=== PATIENT | female | born 1960 | race Caucasian/White ===

== ENCOUNTER 2024-09-09 10:43 | Inpatient (IN) | payer MEDICARE ==
--- NOTE | 2024-09-09 11:19 | ED ---
Fever HPI - General Chief Complaint: Fever Stated Complaint: Allergic reaction Time Seen by Provider: 09/09/24 11:02 Source: patient, RN notes reviewed Mode of arrival: EMS Limitations: no limitations - History of Present Illness Initial Comments: 64-year-old female presents emergency department via EMS with family with chief complaint of possible drug reaction. Patient further had chemotherapy in which patient has been receiving the similar chemotherapy for triple negative breast cancer at [facility]. Patient probably had a reaction yesterday receive epinephrine and Solu-Medrol Benadryl was better finished infusion at a slower rate and was discharge patient felt well leaving the hospital but developed some chills late last night woke up this morning felt chilled achy and felt that she may be having a reaction. She has had no URI symptoms denies any sick contacts denies urinary symptoms she has had no recent infections otherwise. Patient was given Benadryl by EMS. Patient was noted to have a temp of 105.2. - Related Data Allergies Allergy/AdvReac Type Severity Reaction Status Date / Time No Known Allergies Allergy Verified 09/09/24 11:03 Review of Systems ROS Statement: Those systems with pertinent positive or pertinent negative responses have been documented in the HPI. ROS Other: All systems not noted in ROS Statement are negative. Past Medical History Past Medical History: Cancer Additional Past Medical History / Comment(s): breast ca History of Any Multi-Drug Resistant Organisms: None Reported Past Surgical History: Section Past Psychological History: No Psychological Hx Reported Smoking Status: Never smoker Past Alcohol Use History: None Reported Past Drug Use History: None Reported General Exam Limitations: no limitations General appearance: alert, in no apparent distress Head exam: Present: atraumatic, normocephalic, normal inspection Eye exam: Present: normal appearance, PERRL, EOMI. Absent: scleral icterus, conjunctival injection, periorbital swelling ENT exam: Present: normal exam, mucous membranes moist Neck exam: Present: normal inspection, full ROM. Absent: tenderness, meningismus, lymphadenopathy Respiratory exam: Present: normal lung sounds bilaterally. Absent: respiratory distress, wheezes, rales, rhonchi, stridor Cardiovascular Exam: Present: regular rate, normal rhythm, normal heart sounds. Absent: systolic murmur, diastolic murmur, rubs, gallop, clicks GI/Abdominal exam: Present: soft, normal bowel sounds. Absent: distended, tenderness, guarding, rebound, rigid Neurological exam: Present: alert, oriented X3 Skin exam: Present: warm, dry, intact, normal color. Absent: rash Course Vital Signs 09/09/24 09/09/24 09/09/24 10:50 11:00 11:30 Temperature 105.2 F H Pulse Rate 95 95 113 H Respiratory 20 20 19 Rate Blood Pressure 119/55 124/57 112/90 O2 Sat by Pulse 97 97 96 Oximetry 09/09/24 09/09/24 09/09/24 12:00 12:05 13:00 Temperature 103.0 F H 99.7 F H Pulse Rate 99 98 91 Respiratory 18 18 17 Rate Blood Pressure 73/34 86/56 75/45 O2 Sat by Pulse 97 97 95 Oximetry 09/09/24 09/09/24 09/09/24 14:00 14:30 15:00 Temperature Pulse Rate 81 84 82 Respiratory 18 18 19 Rate Blood Pressure 90/44 95/45 93/47 O2 Sat by Pulse 95 97 97 Oximetry 09/09/24 16:00 Temperature 98.3 F Pulse Rate 72 Respiratory 19 Rate Blood Pressure 83/55 O2 Sat by Pulse 98 Oximetry Medical Decision Making - Medical Decision Making Was pt. sent in by a medical professional or institution (, PA, EXTRUDER OPERATOR HORIZONTAL, urgent care, hospital, or alf...) When possible be specific @ -No Did you speak to anyone other than the patient for history (EMS, parent, family, police, friend...)? What history was obtained from this source @ -No Did you review nursing and triage notes (agree or disagree)? Why? @ -I reviewed and agree with nursing and triage notes Were old charts reviewed (outside hosp., previous admission, EMS record, old EKG, old radiological studies, urgent care reports/EKG's, alf records)? Report findings @ -No old charts were reviewed Differential Diagnosis (chest pain, altered mental status, abdominal pain women, abdominal pain men, vaginal bleeding, weakness, fever, dyspnea, syncope, headache, dizziness, GI bleed, back pain, seizure, CVA, palpatations, mental health, musculoskeletal)? @ -Differential Fever: Pneumonia, viral URI, endocarditis, myocarditis, pericarditis, otitis, sinusitis, peritonsillar Abscess, retropharyngeal Abscess, epiglottitis, peritonitis, appendicitis, Parris cystitis, diverticulitis, hepatitis, colitis, UTI, PID, TOA, pyelonephritis, prostatitis, epididymitis, meningitis, encephalitis, pulmonary embolism, CVA, thyroid storm, pancreatitis, adrenal crisis, cavernous sinus thrombosis, this is not meant to be an all-inclusive list. EKG interpreted by me (3pts min.). @ -None X-rays interpreted by me (1pt min.). @ -X-ray shows no definite infiltrate CT interpreted by me (1pt min.). @ -None done U/S interpreted by me (1pt. min.). @ -Ultrasound liver showing no biliary duct dilation, possible hepatic lesion no other acute process What testing was considered but not performed or refused? (CT, X-rays, U/S, labs)? Why? @ -None What meds were considered but not given or refused? Why? @ -None Did you discuss the management of the patient with other professionals (professionals i.e. , PA, EXTRUDER OPERATOR HORIZONTAL, lab, RT, psych nurse, administrator social welfare, swatch maker, teacher, radio officer, gearcase assembler)? Give summary @ -[Sound physician for admission Was smoking cessation discussed for >3mins.? @ -No Was critical care preformed (if so, how long)? @ -No Were there social determinants of health that impacted care today? How? (H omelessness, low income, unemployed, alcoholism, drug addiction, transportation, low edu. Level, literacy, decrease access to med. care, skilled nursing, rehab)? @ -No Was there de-escalation of care discussed even if they declined (Discuss DNR or withdrawal of care, Hospice)? DNR status @ -No What co-morbidities impacted this encounter? (DM, HTN, Smoking, COPD, CAD, Cancer, CVA, ARF, Chemo, Hep., AIDS, mental health diagnosis, sleep apnea, morbid obesity)? @ -Brest cancer Was patient admitted / discharged? Hospital course, mention meds given and route, prescriptions, significant lab abnormalities, going to OR and other pertinent info. @ -Admitted patient presents for possible regression, fever. Patient noted to have 105 temp. Patient was given acetaminophen ibuprofen. Patient started fluid boluses, maintenance fluids, will antibiotic therapy for concerns for bacteremia. Blood culture was drawn from periphery and 1 ordered from port. I did attempt to contact patient's oncologist. Patient will have repeat laboratory studies, Undiagnosed new problem with uncertain prognosis? @ -[Yes Drug Therapy requiring intensive monitoring for toxicity (Heparin, Nitro, Insulin, Cardizem)? @ -No Were any procedures done? @ -No Diagnosis/symptom? @ -Fever, breast cancer, chemotherapy reaction Acute, or Chronic, or Acute on Chronic? @ -Acute Uncomplicated (without systemic symptoms) or Complicated (systemic symptoms)? @ -Complicated Side effects of treatment? @ -No Exacerbation, Progression, or Severe Exacerbation? @ -No Poses a threat to life or bodily function? How? (Chest pain, USA, OR, pneumonia, PE, COPD, DKA, ARF, appy, cholecystitis, CVA, Diverticulitis, Homicidal, Suicidal, threat to staff... and all critical care pts) @ -Yes possible endorgan failure - Lab Data Result diagrams: 09/09/24 11:33 09/09/24 11:33 Lab Results 09/09/24 09/09/24 09/09/24 Range/Units 11:33 11:33 11:33 WBC 5.7 (3.8-10.6) k/uL RBC 4.17 (3.80-5.40) m/uL Hgb 12.3 (11.4-16.0) gm/dL Hct 36.6 (34.0-46.0) % MCV 87.7 (80.0-100.0) fL MCH 29.6 (25.0-35.0) pg MCHC 33.7 (31.0-37.0) g/dL RDW 13.4 (11.5-15.5) % Plt Count 99 L (150-450) k/uL MPV 8.0 Neutrophils % 93 % Lymphocytes % 4 % Monocytes % 2 % Eosinophils % 0 % Basophils % 0 % Neutrophils # 5.3 (1.3-7.7) k/uL Lymphocytes # 0.2 L (1.0-4.8) k/uL Monocytes # 0.1 (0-1.0) k/uL Eosinophils # 0.0 (0-0.7) k/uL Basophils # 0.0 (0-0.2) k/uL Manual Slide Review Performed PT 14.3 H (10.0-12.5) sec INR 1.4 H (<1.2) APTT 28.2 (22.0-30.0) sec Sodium (137-145) mmol/L Potassium (3.5-5.1) mmol/L Chloride (98-107) mmol/L Carbon Dioxide (22-30) mmol/L Anion Gap mmol/L BUN (7-17) mg/dL Creatinine (0.52-1.04) mg/dL Est GFR (CKD-EPI)AfAm (>60 ml/min/1.73 sqM) Est GFR (CKD-EPI)NonAf (>60 ml/min/1.73 sqM) Glucose (74-99) mg/dL Lactic Ac Sepsis Rflx Plasma Lactic Acid Agustin (0.7-2.0) mmol/L Calcium (8.4-10.2) mg/dL Total Bilirubin (0.2-1.3) mg/dL AST (14-36) U/L ALT (4-34) U/L Alkaline Phosphatase (38-126) U/L Total Protein (6.3-8.2) g/dL Albumin (3.5-5.0) g/dL Urine Color Yellow Urine Appearance Cloudy H (Clear) Urine pH 5.5 (5.0-8.0) Ur Specific [place] 1.020 (1.001-1.035) Urine Protein 2+ H (Negative) Urine Glucose (UA) Negative (Negative) Urine Ketones Negative (Negative) Urine Blood Moderate H (Negative) Urine Nitrite Negative (Negative) Urine Bilirubin Negative (Negative) Urine Urobilinogen <2.0 (<2.0) mg/dL Ur Leukocyte Esterase Trace H (Negative) Urine RBC 2 (0-5) /hpf Urine WBC 9 H (0-5) /hpf Ur Squamous Epith Cells 2 (0-4) /hpf Urine Bacteria Occasional H (None) /hpf Urine Mucus Rare H (None) /hpf Influenza Type A (PCR) (Not Detectd) Influenza Type B (PCR) (Not Detectd) RSV (PCR) (Not Detectd) SARS-CoV-2 (PCR) (Not Detectd) 09/09/24 09/09/24 09/09/24 Range/Units 11:33 11:33 11:33 WBC (3.8-10.6) k/uL RBC (3.80-5.40) m/uL Hgb (11.4-16.0) gm/dL Hct (34.0-46.0) % MCV (80.0-100.0) fL MCH (25.0-35.0) pg MCHC (31.0-37.0) g/dL RDW (11.5-15.5) % Plt Count (150-450) k/uL MPV Neutrophils % % Lymphocytes % % Monocytes % % Eosinophils % % Basophils % % Neutrophils # (1.3-7.7) k/uL Lymphocytes # (1.0-4.8) k/uL Monocytes # (0-1.0) k/uL Eosinophils # (0-0.7) k/uL Basophils # (0-0.2) k/uL Manual Slide Review PT (10.0-12.5) sec INR (<1.2) APTT (22.0-30.0) sec Sodium 135 L (137-145) mmol/L Potassium 3.8 (3.5-5.1) mmol/L Chloride 106 (98-107) mmol/L Carbon Dioxide 19 L (22-30) mmol/L Anion Gap 10 mmol/L BUN 21 H (7-17) mg/dL Creatinine 1.07 H (0.52-1.04) mg/dL Est GFR (CKD-EPI)AfAm 63 (>60 ml/min/1.73 sqM) Est GFR (CKD-EPI)NonAf 55 (>60 ml/min/1.73 sqM) Glucose 114 H (74-99) mg/dL Lactic Ac Sepsis Rflx Plasma Lactic Acid Agustin 4.5 H* (0.7-2.0) mmol/L Calcium 7.7 L (8.4-10.2) mg/dL Total Bilirubin 1.1 (0.2-1.3) mg/dL AST 431 H (14-36) U/L ALT 434 H (4-34) U/L Alkaline Phosphatase 98 (38-126) U/L Total Protein 5.5 L (6.3-8.2) g/dL Albumin 3.1 L (3.5-5.0) g/dL Urine Color Urine Appearance (Clear) Urine pH (5.0-8.0) Ur Specific [place] (1.001-1.035) Urine Protein (Negative) Urine Glucose (UA) (Negative) Urine Ketones (Negative) Urine Blood (Negative) Urine Nitrite (Negative) Urine Bilirubin (Negative) Urine Urobilinogen (<2.0) mg/dL Ur Leukocyte Esterase (Negative) Urine RBC (0-5) /hpf Urine WBC (0-5) /hpf Ur Squamous Epith Cells (0-4) /hpf Urine Bacteria (None) /hpf Urine Mucus (None) /hpf Influenza Type A (PCR) Not Detected (Not Detectd) Influenza Type B (PCR) Not Detected (Not Detectd) RSV (PCR) Not Detected (Not Detectd) SARS-CoV-2 (PCR) Not Detected (Not Detectd) 09/09/24 Range/Units 12:24 WBC (3.8-10.6) k/uL RBC (3.80-5.40) m/uL Hgb (11.4-16.0) gm/dL Hct (34.0-46.0) % MCV (80.0-100.0) fL MCH (25.0-35.0) pg MCHC (31.0-37.0) g/dL RDW (11.5-15.5) % Plt Count (150-450) k/uL MPV Neutrophils % % Lymphocytes % % Monocytes % % Eosinophils % % Basophils % % Neutrophils # (1.3-7.7) k/uL Lymphocytes # (1.0-4.8) k/uL Monocytes # (0-1.0) k/uL Eosinophils # (0-0.7) k/uL Basophils # (0-0.2) k/uL Manual Slide Review PT (10.0-12.5) sec INR (<1.2) APTT (22.0-30.0) sec Sodium (137-145) mmol/L Potassium (3.5-5.1) mmol/L Chloride (98-107) mmol/L Carbon Dioxide (22-30) mmol/L Anion Gap mmol/L BUN (7-17) mg/dL Creatinine (0.52-1.04) mg/dL Est GFR (CKD-EPI)AfAm (>60 ml/min/1.73 sqM) Est GFR (CKD-EPI)NonAf (>60 ml/min/1.73 sqM) Glucose (74-99) mg/dL Lactic Ac Sepsis Rflx Y Plasma Lactic Acid Agustin (0.7-2.0) mmol/L Calcium (8.4-10.2) mg/dL Total Bilirubin (0.2-1.3) mg/dL AST (14-36) U/L ALT (4-34) U/L Alkaline Phosphatase (38-126) U/L Total Protein (6.3-8.2) g/dL Albumin (3.5-5.0) g/dL Urine Color Urine Appearance (Clear) Urine pH (5.0-8.0) Ur Specific [place] (1.001-1.035) Urine Protein (Negative) Urine Glucose (UA) (Negative) Urine Ketones (Negative) Urine Blood (Negative) Urine Nitrite (Negative) Urine Bilirubin (Negative) Urine Urobilinogen (<2.0) mg/dL Ur Leukocyte Esterase (Negative) Urine RBC (0-5) /hpf Urine WBC (0-5) /hpf Ur Squamous Epith Cells (0-4) /hpf Urine Bacteria (None) /hpf Urine Mucus (None) /hpf Influenza Type A (PCR) (Not Detectd) Influenza Type B (PCR) (Not Detectd) RSV (PCR) (Not Detectd) SARS-CoV-2 (PCR) (Not Detectd) Disposition Clinical Impression: Chemotherapy adverse reaction, Fever Disposition: ADMITTED IP TO THIS HOSP Condition: Poor Referrals: Carlyle Cao DO [Primary Care Provider] - 1-2 days Time of Disposition: 15:43
[2024-09-09] MEDS: ACETAMINOPHEN IV (For NPO) 1,000 MG in EMPTY BAG 1 BAG IVPB STA (11:30)
[2024-09-09] MEDS: IBUPROFEN 600 MG TAB PO STA (11:34)
--- NOTE | 2024-09-09 12:05 | XR ---
EXAMINATION TYPE: XR chest 2V DATE OF EXAM: 09/09/2024 11:40 AM COMPARISON: None CLINICAL INDICATION: Female, 64 years old with history of Fever, , TECHNIQUE: AP and lateral views FINDINGS: The heart is borderline enlarged. Mild diffuse interstitial density. No vargas consolidation. Right an terior chest wall injection port with catheter tip at the lower SVC level. No pleural effusion. IMPRESSION: Borderline cardiomegaly and interstitial prominence. Consider mild CHF with pulmonary vascular conges tion versus bronchitis or atypical pneumonias. [facility], , 09/09/2024 12:03 PM
[2024-09-09 12:11] LABS: Basophils % (A) 0 %; Eosinophils % (A) 0 %; HCT 36.6 % (34.0-46.0); HGB 12.3 gm/dL (11.4-16.0); Lymphocytes # (A) 0.2 k/uL (1.0-4.8); Lymphocytes % (A) 4 %; MCH 29.6 pg (25.0-35.0); MCHC 33.7 g/dL (31.0-37.0); MCV 87.7 fL (80.0-100.0); Monocytes # (A) 0.1 k/uL (0-1.0); Monocytes % (A) 2 %; Neutrophils # (A) 5.3 k/uL (1.3-7.7); Neutrophils % (A) 93 %; RBC 4.17 m/uL (3.80-5.40); RDW 13.4 % (11.5-15.5); WBC 5.7 k/uL (3.8-10.6)
[2024-09-09 12:13] LABS: ALT 434 U/L (4-34); AST 431 U/L (14-36); African American GFR (CKD) 63 (>60 ml/min/1.73 sqM); Albumin 3.1 g/dL (3.5-5.0); Alkaline Phosphatase 98 U/L (38-126); Anion Gap 10 mmol/L; Blood Urea Nitrogen 21 mg/dL (7-17); Calcium 7.7 mg/dL (8.4-10.2); Carbon Dioxide 19 mmol/L (22-30); Chloride 106 mmol/L (98-107); Glucose 114 mg/dL (74-99); Non-African American GFR(CKD) 55 (>60 ml/min/1.73 sqM); Potassium 3.8 mmol/L (3.5-5.1); Sodium 135 mmol/L (137-145); Total Bilirubin 1.1 mg/dL (0.2-1.3); Total Protein 5.5 g/dL (6.3-8.2)
[2024-09-09 12:14] LABS: INR 1.4 (<1.2); Partial Thromboplastin Time 28.2 sec (22.0-30.0); Prothrombin Time 14.3 sec (10.0-12.5)
[2024-09-09] MEDS: SODIUM CHLORIDE 0.9% 500 ML 500 ML IV ONE ×2 (12:20→13:38)
[2024-09-09] MEDS: SODIUM CHLORIDE 0.9% 1,000 ML IV ONE ×2 (12:20→17:06)
[2024-09-09 12:27] LABS: Platelet Count 99 k/uL (150-450)
--- NOTE | 2024-09-09 14:35 | US ---
EXAMINATION TYPE: US liver DATE OF EXAM: 09/09/2024 COMPARISON: NONE CLINICAL INDICATION: Female, 64 years old with history of Transaminitis; Allergic reaction to breast cancer chemotherapy treatment TECHNIQUE: Grayscale and color Doppler imaging of the right upper quadrant was performed. FINDINGS: EXAM MEASUREMENTS: Liver Length: 16.3 cm Gallbladder Wall: 0.2 cm CBD: 0.5 cm Right Kidney: 10.7 x 4.2 x 4.9 cm NUTRITIONISTS NOTES: Patient experience extreme nausea when tech scanned over pancreas Pancreas: Suboptimal visualization of the pancreatic tail due to shadowing from bowel gas. Visualize d portions show no gross abnormality. Liver: Slightly hypoechoic appearance. No focal lesions. Gallbladder: wnl Evidence for sonographic Anguiano's sign: No CBD: Upper limits of normal. Right Kidney: wnl IMPRESSION: 1. Slightly hypoechoic appearance to the liver may be on a technical basis but may also be seen with hepatitis. Clinically correlate. 2. No gallstones or biliary ductal dilatation. [facility], , 09/09/2024 2:33 PM
[2024-09-09 15:13] LABS: Appearance,Urine Cloudy (Clear); Bacteria,Urine Occasional /hpf; Bilirubin,Urine Negative (Negative); Blood,Urine Moderate (Negative); Color,Urine Yellow; Glucose,Urine (UA) Negative (Negative); Ketones,Urine Negative (Negative); Leukocyte Esterase,Urine Trace (Negative); Mucus,Urine Rare /hpf; Nitrite,Urine Negative (Negative); PH, Urine 5.5 (5.0-8.0); Protein,Urine 2+ (Negative); RBC,Urine 2 /hpf (0-5); Squamous Epithelial Cell,Urine 2 /hpf (0-4); Urobilinogen,Urine <2.0 mg/dL (<2.0); WBC,Urine 9 /hpf (0-5)
[2024-09-09] MEDS ORDERED: VANCOMYCIN IV PER PHARMACY 1 EACH MISC MISCELLANE PRN (15:41)
[2024-09-09] MEDS ORDERED: NALOXONE 0.4 MG/ML 1 ML VIAL IV PRN (16:13)
[2024-09-09] MEDS ORDERED: IBUPROFEN 400 MG TAB PO PRN (16:13)
[2024-09-09] MEDS: LIDOCAINE-PRILOCAINE 2.5-2.5% CREAM 5 GM TUBE TOPICAL STA (16:53)
[2024-09-09] MEDS: methylPREDNISolone SOD SUCCI 125 MG/2 ML VIAL IV STA (17:02)
--- NOTE | 2024-09-09 17:02 | P.HPIM ---
History of Present Illness H&P Date: 09/09/24 History of Presenting Illness: Patient is a very pleasant 64-year-old female with a past medical history of hypertension and breast cancer currently undergoing chemotherapy. She reports receiving her first dose of second round of chemotherapy yesterday for treatment of her triple negative breast cancer at [facility]. Patient reports that she had a reaction to her chemotherapy yesterday and received a dose of epinephrine, Benadryl and Solu-Medrol and was discharged back home. Patient reports she woke up feeling overall ill with chills and generalized achiness and mild epigastric pain. She noted herself to be febrile so she called her oncologist who directed her to go to the nearest emergency department for evaluation. Patient denies having any known ill contacts or any other complaints at this time. She denies having headache, lightheadedness, dizziness, chest pain, palpitations, shortness of breath, cough or congestion, nausea, vomiting, or experiencing any numbness/tingling/weakness/swelling in her extremities. Patient does report mild epigastric discomfort and decreased appetite. Upon arrival to our facility, patient underwent evaluation in the emergency department. Vital signs upon arrival show blood pressure 119/55, heart rate 95, respiratory rate 20, temp 105.2 F, and SpO2 of 97% on room air. Chest x-ray was completed showing borderline cardiomegaly and interstitial prominence with pulmonary vascular congestion versus bronchitis or atypical pneumonia. Labs completed and reviewed. CBC unremarkable with exception of thrombocytopenia with platelet count of 99. Coagulation profile showing elevated PT of 14.3 and INR of 1.4. BMP showing sodium 135, potassium 3.8, chloride 106, bicarb 19, and anion gap of 10. Renal function slightly elevated with BUN of 21, creatinine 1.07, GFR 55. Blood glucose 114. Lactic acid 4.5. Liver profile showing elevated AST of 431 and ALT of 434. Urinalysis negative for infection. Influenza A, influenza B, RSV, and COVID PCR negative. Liver ultrasound showing slightly hypoechoic appearance of the liver may be on a technical basis but also seen with hepatitis, no gallstones or biliary ductal dilation. blood cultures were obtained both peripherally and from patient's Chemo-Port that was placed approximately 6 weeks ago. Patient was started on broad-spectrum antibiotics and admitted under our services with consultation to infectious disease and oncology. Review of systems: Pertinent positives and negatives as discussed in HPI, a complete review of systems was performed and all other systems are negative. Physical exam: Vital signs reviewed and stable. General: Nontoxic, no distress and appears stated age. Derm: Skin warm and dry, normal coloration for ethnicity. Head: Atraumatic, normocephalic and symmetric. Eyes: EOM's intact, no lid lag, and anicteric sclera Mouth: no lip lesions, mucus membranes moist Cardiovascular: regular rate and rhythm with normal S1S2, no murmur, positive posterior tibial pulses bilaterally, and cap refill < 2 seconds. Lungs: Respirations even, regular, and unlabored on room air. Lungs CTA bilaterally, no rhonchi, no rales, no wheezing, and no accessory muscle usage. Abdominal: soft, tenderness upon palpation to epigastric region, no guarding, no appreciable organomegaly Ext: ROM intact. No gross muscle atrophy, no edema, no contractures Neuro: Speech clear, face symmetrical and CN II-XII grossly intact with no noted focal neuro deficits Psych: Alert and oriented to person, place, time, and situation. Appropriate and pleasant affect. Assessment and Plan of Care: Sepsis on arrival Pyrexia while undergoing chemotherapy Lactic acidosis Hyperbilirubinemia Breast cancer undergoing chemotherapy -Order placed for stat CT abdomen and pelvis. CT revealing mild uncomplicated sigmoid diverticulitis, hepatic steatosis, and mild soft tissue edema. -Vancomycin discontinued and patient started on Zosyn 3.375 g every 8 hours. -Continue with aggressive IV fluid hydration for hypotension with blood pressure 90s systolic. -Repeat lactic acid monitor for resolution of lactic acidosis. -Discussed case with window and siding craftsman, if blood pressures do not improve or lactic acid does not improve patient may require transfer to ICU. -Follow-up on blood culture results. -Continue symptomatic care and pain management. Data and imaging reviewed: -As stated above in HPI The patient is admitted with an anticipated greater than 2 midnight stay for evaluation of severe sepsis CODE STATUS: Full code DVT prophylaxis: Lovenox Anticipated discharge date: Pending clinical course Anticipated discharge place: Home Patient was seen independently by Nurse Practitioner. This document was prepared using garbs dictation software. Please allow for errors in carbider while rare they do occur. Javad Mccray NP rendered care for this patient independently, reviewed the findings and plan as documented in the note above and agree with plan. I did not physically speak with or examine the patient on this date. Past Medical History Past Medical History: Cancer Additional Past Medical History / Comment(s): breast ca History of Any Multi-Drug Resistant Organisms: None Reported Past Surgical History: Section Past Psychological History: No Psychological Hx Reported Smoking Status: Never smoker Past Alcohol Use History: None Reported Past Drug Use History: None Reported Medications and Allergies Home Medications Medication Instructions Recorded Confirmed Type Cetirizine HCl [Zyrtec] 10 mg PO DAILY 09/09/24 09/09/24 History Lidocaine-Prilocaine Cream [Emla 1 applic TOPICAL DAILY PRN 09/09/24 09/09/24 History Cream 2.5%/2.5%] Losartan [Cozaar] 50 mg PO DAILY 09/09/24 09/09/24 History OLANZapine [ZyPREXA] 5 mg PO DIRECTED PRN 09/09/24 09/09/24 History Ondansetron Odt [Zofran Odt] 8 mg PO Q8HR PRN 09/09/24 09/09/24 History Prochlorperazine [Compazine] 10 mg PO Q6H PRN 09/09/24 09/09/24 History dexAMETHasone [Decadron] 8 mg PO DIRECTED 09/09/24 09/09/24 History Allergies Allergy/AdvReac Type Severity Reaction Status Date / Time No Known Allergies Allergy Verified 09/09/24 16:16 Physical Exam Vitals: Vital Signs Temp Pulse Resp BP Pulse Ox 09/09/24 16:00 98.3 F 72 19 83/55 98 09/09/24 15:00 82 19 93/47 97 09/09/24 14:30 84 18 95/45 97 09/09/24 14:00 81 18 90/44 95 09/09/24 13:00 99.7 F H 91 17 75/45 95 09/09/24 12:05 103.0 F H 98 18 86/56 97 09/09/24 12:00 99 18 73/34 97 09/09/24 11:30 113 H 19 112/90 96 09/09/24 11:00 95 20 124/57 97 09/09/24 10:50 105.2 F H 95 20 119/55 97 Intake and Output 09/09/24 09/09/24 09/09/24 06:59 14:59 22:59 Other: Weight 71.214 kg Results CBC & Chem 7: 09/09/24 11:33 09/09/24 11:33 Labs: Abnormal Lab Results - Last 24 Hours (Table) 09/09/24 09/09/24 09/09/24 Range/Units 11:33 11:33 11:33 Plt Count 99 L (150-450) k/uL Lymphocytes # 0.2 L (1.0-4.8) k/uL PT 14.3 H (10.0-12.5) sec INR 1.4 H (<1.2) Sodium (137-145) mmol/L Carbon Dioxide (22-30) mmol/L BUN (7-17) mg/dL Creatinine (0.52-1.04) mg/dL Glucose (74-99) mg/dL Plasma Lactic Acid Agustin (0.7-2.0) mmol/L Calcium (8.4-10.2) mg/dL AST (14-36) U/L ALT (4-34) U/L Total Protein (6.3-8.2) g/dL Albumin (3.5-5.0) g/dL Urine Appearance Cloudy H (Clear) Urine Protein 2+ H (Negative) Urine Blood Moderate H (Negative) Ur Leukocyte Esterase Trace H (Negative) Urine WBC 9 H (0-5) /hpf Urine Bacteria Occasional H (None) /hpf Urine Mucus Rare H (None) /hpf 09/09/24 09/09/24 Range/Units 11:33 11:33 Plt Count (150-450) k/uL Lymphocytes # (1.0-4.8) k/uL PT (10.0-12.5) sec INR (<1.2) Sodium 135 L (137-145) mmol/L Carbon Dioxide 19 L (22-30) mmol/L BUN 21 H (7-17) mg/dL Creatinine 1.07 H (0.52-1.04) mg/dL Glucose 114 H (74-99) mg/dL Plasma Lactic Acid Agustin 4.5 H* (0.7-2.0) mmol/L Calcium 7.7 L (8.4-10.2) mg/dL AST 431 H (14-36) U/L ALT 434 H (4-34) U/L Total Protein 5.5 L (6.3-8.2) g/dL Albumin 3.1 L (3.5-5.0) g/dL Urine Appearance (Clear) Urine Protein (Negative) Urine Blood (Negative) Ur Leukocyte Esterase (Negative) Urine WBC (0-5) /hpf Urine Bacteria (None) /hpf Urine Mucus (None) /hpf
[2024-09-09] MEDS: SODIUM CHLORIDE 0.9% 1,000 ML IV SCH (17:04)
[2024-09-09] MEDS: CEFEPIME 2 GM in SODIUM CHLORIDE 0.9% 100 ML IVPB STA (17:39)
[2024-09-09] MEDS: ONDANSETRON 4 MG/2 ML VIAL IVP PRN (17:49)
[2024-09-09] MEDS: VANCOMYCIN 1,250 MG in SODIUM CHLORIDE 0.9% 250 ML IVPB STA (18:14)
--- NOTE | 2024-09-09 18:39 | CT ---
INDICATION: Patient age:Female; 64 years old; Reason for study: epigastric tenderness on palpation, high fever; PHH. COMPARISON: Abdominal ultrasound from same day. TECHNIQUE: Standard CT of the abdomen and pelvis following the administration of 80 cc of Isovue 30 0 IV contrast material. Coronal and sagittal reformats were performed. One or more CT dose reduction strategies were utilized during this examination. Total DLP administered was 911.4 mGycm. FINDINGS: LOWER CHEST: Posterior dependent subsegmental atelectasis is noted. ABDOMEN LIVER: Diffusely hypoattenuating, suggestive hepatic steatosis. GALLBLADDER AND BILE DUCTS: Unremarkable. PANCREAS: Unremarkable. SPLEEN: Unremarkable. ADRENAL GLANDS: Unremarkable. KIDNEYS AND URETERS: No evidence of hydronephrosis or renal calculus. The ureters are unremarkable. PELVIS URINARY BLADDER: Incompletely distended but grossly unremarkable. Urachus incidentally noted. REPRODUCTIVE: Unremarkable. ABDOMEN & PELVIS STOMACH AND BOWEL: Small hiatal hernia. Small bowel is of normal caliber. Sigmoid diverticula are see n. The sigmoid colon demonstrates mild wall thickening with peridiverticular fat stranding. There is no evidence for pneumatosis. No pericolonic fluid collections. No obvious fistulization. No evidence of bowel obstruction. PERITONEUM: No evidence of pneumoperitoneum or free fluid. VASCULATURE: No aneurysmal changes. MUSCULOSKELETAL: No acute osseous abnormalities LYMPH NODES: Unremarkable. SOFT TISSUE/ABDOMINAL WALL: Mild soft tissue edema. IMPRESSION: 1. Mild uncomplicated sigmoid diverticulitis. 2. Findings suggestive of hepatic steatosis. Correlate with clinical evaluation. 3. Mild soft tissue edema. [facility], , 09/09/2024 6:37 PM
[2024-09-09] MEDS ORDERED: PROCHLORPERAZINE INJ 10 MG/2 ML VIAL IVP PRN (19:05)
[2024-09-09] MEDS: dexAMETHasone 4 MG TAB PO SCH (19:49)
[2024-09-09] MEDS: PIPERACILLIN-TAZOBACTAM 3.375 GM in SODIUM CHLORIDE 0.9% 100 ML IVPB SCH (20:29)
[2024-09-10] MEDS: BENZOCAINE/MENTHOL LOZENG 1 EACH LOZENGE MUCOUS MEM PRN (05:14)
[2024-09-10] MEDS: ENOXAPARIN 40 MG/0.4 ML SYRINGE SQ SCH (09:51)
[2024-09-10] MEDS: LORATADINE 10 MG TAB PO SCH (09:52)
[2024-09-10 11:34] LABS: Basophils % (A) 0 %; Eosinophils % (A) 0 %; HCT 34.2 % (34.0-46.0); HGB 11.1 gm/dL (11.4-16.0); Lymphocytes # (A) 0.7 k/uL (1.0-4.8); Lymphocytes % (A) 10 %; MCH 29.1 pg (25.0-35.0); MCHC 32.4 g/dL (31.0-37.0); MCV 89.9 fL (80.0-100.0); Mean Platelet Volume 10.2; Monocytes # (A) 0.1 k/uL (0-1.0); Monocytes % (A) 2 %; Neutrophils # (A) 5.7 k/uL (1.3-7.7); Neutrophils % (A) 87 %; RDW 13.9 % (11.5-15.5); WBC 6.5 k/uL (3.8-10.6)
[2024-09-10 11:37] LABS: Platelet Count 69 k/uL (150-450)
[2024-09-10 12:36] LABS: ALT 343 U/L (4-34); AST 207 U/L (14-36); African American GFR (CKD) >90 (>60 ml/min/1.73 sqM); Albumin 2.9 g/dL (3.5-5.0); Albumin/Globulin Ratio 1.2; Alkaline Phosphatase 70 U/L (38-126); Anion Gap 5 mmol/L; Blood Urea Nitrogen 20 mg/dL (7-17); Calcium 6.8 mg/dL (8.4-10.2); Carbon Dioxide 15 mmol/L (22-30); Chloride 118 mmol/L (98-107); Globulin 2.5 g/dL; Glucose 164 mg/dL (74-99); Non-African American GFR(CKD) 89 (>60 ml/min/1.73 sqM); Potassium 3.9 mmol/L (3.5-5.1); Sodium 138 mmol/L (137-145); Total Bilirubin 0.8 mg/dL (0.2-1.3); Total Protein 5.4 g/dL (6.3-8.2)
--- NOTE | 2024-09-10 12:46 | P.CONS ---
History of Present Illness - Reason for Consult Consult date: 09/10/24 Fever, chemoimmunotherapy for breast cancer - History of Present Illness The patient is a 64-year-old white female, with a recent diagnosis of triple negative left-sided breast cancer, as well as a suspicious area on the right. The patient's primary oncologist is Dr. Turcios, at [facility]. The patient is on neoadjuvant chemoimmunotherapy, with Keytruda/Taxol/carboplatin and is status post 2 cycles. The patient tolerated her first cycle well. With cycle 2 that was being administered yesterday, she developed a reaction during Taxol infusion, with upper chest pain and tightness, back pain, and shortness of breath. Her symptoms resolved with stopping the infusion, and epinephrine. After a delay of about 45 minutes, during which she also received IV Solu-Medrol, Taxol was resumed at a slow rate and she was able to complete it without any problems. She was feeling reasonably well when she went home Patient states that she woke up with complaints of feeling feverish, generalized aching, chills, and upper abdominal pain. She contacted her primary oncologist who advised her to come to the ER. In the ER her temperature was 105.2. She also reported episodes of diarrhea, mucoid/watery, small in amount. She has had at least 2 episodes today. She has some mild sinus congestion, but denied any other symptoms concerning for infection Her CT of the abdomen and pelvis showed evidence of uncomplicated sigmoid diverticulitis. The patient has had prior episodes of the same. Ultrasound of the liver showed a hypoechoic appearance of the parenchyma, which can be seen with fatty change, but no focal lesions. The patient does have a port Review of Systems Constitutional: Reports chills, Reports fever Eyes: denies blurred vision, denies pain Ears: deny: decreased hearing, ear discharge, earache, tinnitus Ears, nose, mouth and throat: Reports sinus pressure Breasts: bilateral: as per HPI Cardiovascular: Reports as per HPI Respiratory: Denies cough Gastrointestinal: Reports abdominal pain, Reports diarrhea Genitourinary: Denies dysuria, Denies hematuria Menstruation: Reports postmenopausal Musculoskeletal: Reports myalgias Integumentary: Denies pruritus, Denies rash Neurological: Reports weakness Psychiatric: Denies anxiety, Denies depression Endocrine: Denies fatigue, Denies weight change Hematologic/Lymphatic: Reports as per HPI Allergic/Immunologic: Reports as per HPI Past Medical History Past Medical History: Cancer, GERD/Reflux, Hypertension Additional Past Medical History / Comment(s): breast ca- 04/27 History of Any Multi-Drug Resistant Organisms: None Reported Past Surgical History: Section Past Psychological History: No Psychological Hx Reported Smoking Status: Former smoker Past Alcohol Use History: None Reported Past Drug Use History: None Reported Additional Drug Use History / Comment(s): quit smoking 2017 Medications and Allergies Home Medications Medication Instructions Recorded Confirmed Type Cetirizine HCl [Zyrtec] 10 mg PO DAILY 09/09/24 09/09/24 History Lidocaine-Prilocaine Cream [Emla 1 applic TOPICAL DAILY PRN 09/09/24 09/09/24 History Cream 2.5%/2.5%] Losartan [Cozaar] 50 mg PO DAILY 09/09/24 09/09/24 History OLANZapine [ZyPREXA] 5 mg PO DIRECTED PRN 09/09/24 09/09/24 History Ondansetron Odt [Zofran Odt] 8 mg PO Q8HR PRN 09/09/24 09/09/24 History Prochlorperazine [Compazine] 10 mg PO Q6H PRN 09/09/24 09/09/24 History dexAMETHasone [Decadron] 8 mg PO DIRECTED 09/09/24 09/09/24 History Allergies Allergy/AdvReac Type Severity Reaction Status Date / Time No Known Allergies Allergy Verified 09/09/24 16:16 Physical Exam Vitals: Vital Signs Temp Pulse Pulse Resp BP BP BP 09/10/24 08:03 98.8 F 85 17 131/69 09/10/24 02:10 91/58 93/54 09/10/24 02:00 97.6 F 71 16 74/43 73/44 09/10/24 00:10 97.5 F L 73 16 112/68 09/09/24 22:42 109/68 09/09/24 22:05 94/61 09/09/24 21:12 77 18 89/65 09/09/24 19:46 97.6 F 09/09/24 19:00 75 18 99/52 09/09/24 18:30 77 18 105/56 09/09/24 18:00 75 19 91/50 09/09/24 17:00 74 18 88/51 09/09/24 16:00 98.3 F 72 19 83/55 09/09/24 15:00 82 19 93/47 09/09/24 14:30 84 18 95/45 09/09/24 14:00 81 18 90/44 09/09/24 13:00 99.7 F H 91 17 75/45 Pulse Ox 09/10/24 08:03 100 09/10/24 02:10 09/10/24 02:00 98 09/10/24 00:10 100 09/09/24 22:42 09/09/24 22:05 09/09/24 21:12 99 09/09/24 19:46 09/09/24 19:00 99 09/09/24 18:30 98 09/09/24 18:00 98 09/09/24 17:00 96 09/09/24 16:00 98 09/09/24 15:00 97 09/09/24 14:30 97 09/09/24 14:00 95 09/09/24 13:00 95 Intake and Output 09/09/24 09/10/24 09/10/24 22:59 06:59 14:59 Other: # Voids 3 Weight 71.214 kg - Constitutional General appearance: no acute distress - EENT Eyes: EOMI, PERRLA ENT: hearing grossly normal, normal oropharynx - Neck Neck: no lymphadenopathy Thyroid: bilateral: normal size - Respiratory Respiratory: bilateral: CTA - Cardiovascular Rhythm: regular Heart sounds: normal: S1, S2 - Gastrointestinal General gastrointestinal: normal bowel sounds, soft - Integumentary Integumentary: normal - Neurologic Neurologic: CNII-XII intact - Musculoskeletal Musculoskeletal: strength equal bilaterally - Psychiatric Psychiatric: A&O x's 3, appropriate affect Results CBC & Chem 7: 09/10/24 10:55 09/09/24 11:33 Labs: Abnormal Lab Results - Last 24 Hours (Table) 09/09/24 09/09/24 09/09/24 Range/Units 11:33 11:33 11:33 Hgb (11.4-16.0) gm/dL Plt Count 99 L (150-450) k/uL Lymphocytes # 0.2 L (1.0-4.8) k/uL Procalcitonin 11.70 H (0.02-0.50) ng/mL Urine Appearance Cloudy H (Clear) Urine Protein 2+ H (Negative) Urine Blood Moderate H (Negative) Ur Leukocyte Esterase Trace H (Negative) Urine WBC 9 H (0-5) /hpf Urine Bacteria Occasional H (None) /hpf Urine Mucus Rare H (None) /hpf 09/10/24 Range/Units 10:55 Hgb 11.1 L (11.4-16.0) gm/dL Plt Count 69 L (150-450) k/uL Lymphocytes # 0.7 L (1.0-4.8) k/uL Procalcitonin (0.02-0.50) ng/mL Urine Appearance (Clear) Urine Protein (Negative) Urine Blood (Negative) Ur Leukocyte Esterase (Negative) Urine WBC (0-5) /hpf Urine Bacteria (None) /hpf Urine Mucus (None) /hpf CT scan - abdomen: report reviewed CT scan - pelvis: report reviewed US - abdomen: report reviewed Assessment and Plan (1) Fever Narrative/Plan: The patient developed new onset fever associated symptoms, several hours after completing her chemotherapy infusion. The symptoms are quite different from the reaction that she had during her chemotherapy. Clinically this likely represents a different pathophysiology, compared to the acute drug reaction. -The patient was advised that in this situation the main concern would be to rule out an infection. She has been placed on broad-spectrum antibiotics, and cultures are in process. She is not neutropenic, as would be expected so early during her chemotherapy cycle. Check stools for C. difficile -Other possibilities include diverticulitis as well as a generalized inflammatory response to her treatment regimen, different to the hypersensiti vity reaction that she had previously. -Keep on clear liquids currently Current Visit: Yes Status: Acute Code(s): R50.9 - FEVER, UNSPECIFIED SNOMED Code(s): 295396706 (2) Chemotherapy adverse reaction Narrative/Plan: The patient had a hypersensitivity reaction while receiving Taxol, that appears to be quite characteristic of the typical Taxol hypersensitivity reaction. This had completely resolved and the patient was able to complete the Taxol i nfusion. She was feeling well when she went home. Therefore as stated, her current episode is likely to be due to a different cause. Current Visit: Yes Status: Acute Code(s): T45.1X5A - ADVERSE EFFECT OF ANTINEOPLASTIC AND IMMUNOSUP DRUGS, INIT SNOMED Code(s): 139655976
[2024-09-10 14:04] LABS: Hepatitis A Antibody IgM Nonreactive (Nonreactive); Hepatitis C IgG Antibody Nonreactive (Nonreactive)
[2024-09-10 14:05] LABS: Hepatitis B Core IgM Nonreactive (Nonreactive); Hepatitis B Surface Antigen Nonreactive (Nonreactive)
[2024-09-10] MEDS ORDERED: VANCOMYCIN 1,250 MG in SODIUM CHLORIDE 0.9% 250 ML IVPB SCH (17:00)
[2024-09-10] MEDS: OLANZapine 5 MG TAB PO PRN (21:31)
--- NOTE | 2024-09-10 23:09 | P.CONS ---
History of Present Illness - Reason for Consult Consult date: 09/10/24 Fever, chemo Requesting physician: Carlyle Robertson - Chief Complaint Fever x 2 days - History of Present Illness Patient is a 64-year-old female with a past medical history significant for breast cancer diagnosed April 2024 and has been on chemotherapy also with a history of hypertension reflux patient presenting to the hospital for evaluation of possible drug reaction apparently the patient was having symptoms during infusion of Taxol that has been treated with epinephrine and Solu-Medrol as well as Benadryl patient subsequent developing fever and chills and did have a fever this morning of presentation to the hospital patient denies having any headache or URI symptoms no chest pain or shortness with occasional cough some nausea but no vomiting has been complaining of some lower abdominal discomfort mild to moderate without radiation hide did have a history of constipation no blood or mucus in the stool on presentation to the hospital patient initially did have a temperature of 105 F with a subsequent temperature of 103 F patient was not tachycardic hypotensive or hypoxic and no need for supplemental oxygen she did have a white count of 5.7 BUN/creatinine was mildly elevated lactic acid was elevated as well as elevated liver enzymes urine was not significantly positive influenza RSV COVID testing negative hepatitis panel is negative blood culture obtained currently pending patient did have chest x- ray borderline cardiomegaly and interstitial prominence did have a liver ultrasound no gallstone or biliary duct dilatation abdominal pelvis CT finding suggestive of hepatic steatosis and mild uncomplicated sigmoid diverticulitis patient has been treated with Zosyn infectious disease was consulted for further management of antibiotic therapy Review of Systems Positive point and negatives has been mentioned in the HPI, complete review of systems was performed and all other systems are negative Past Medical History Past Medical History: Cancer, GERD/Reflux, Hypertension Additional Past Medical History / Comment(s): breast ca- 04/27 History of Any Multi-Drug Resistant Organisms: None Reported Past Surgical History: Section Past Psychological History: No Psychological Hx Reported Smoking Status: Former smoker Past Alcohol Use History: None Reported Past Drug Use History: None Reported Additional Drug Use History / Comment(s): quit smoking 2017 Medications and Allergies Home Medications Medication Instructions Recorded Confirmed Type Cetirizine HCl [Zyrtec] 10 mg PO DAILY 09/09/24 09/09/24 History Lidocaine-Prilocaine Cream [Emla 1 applic TOPICAL DAILY PRN 09/09/24 09/09/24 History Cream 2.5%/2.5%] Losartan [Cozaar] 50 mg PO DAILY 09/09/24 09/09/24 History OLANZapine [ZyPREXA] 5 mg PO DIRECTED PRN 09/09/24 09/09/24 History Ondansetron Odt [Zofran Odt] 8 mg PO Q8HR PRN 09/09/24 09/09/24 History Prochlorperazine [Compazine] 10 mg PO Q6H PRN 09/09/24 09/09/24 History dexAMETHasone [Decadron] 8 mg PO DIRECTED 09/09/24 09/09/24 History Allergies Allergy/AdvReac Type Severity Reaction Status Date / Time No Known Allergies Allergy Verified 09/09/24 16:16 Physical Exam Vitals: Vital Signs Temp Pulse Pulse Resp BP BP BP 09/10/24 02:10 91/58 93/54 09/10/24 02:00 97.6 F 71 16 74/43 73/44 09/10/24 00:10 97.5 F L 73 16 112/68 09/09/24 22:42 109/68 09/09/24 22:05 94/61 09/09/24 21:12 77 18 89/65 09/09/24 19:46 97.6 F 09/09/24 19:00 75 18 99/52 09/09/24 18:30 77 18 105/56 09/09/24 18:00 75 19 91/50 09/09/24 17:00 74 18 88/51 09/09/24 16:00 98.3 F 72 19 83/55 09/09/24 15:00 82 19 93/47 09/09/24 14:30 84 18 95/45 09/09/24 14:00 81 18 90/44 09/09/24 13:00 99.7 F H 91 17 75/45 09/09/24 12:05 103.0 F H 98 18 86/56 09/09/24 12:00 99 18 73/34 Pulse Ox 09/10/24 02:10 09/10/24 02:00 98 09/10/24 00:10 100 09/09/24 22:42 09/09/24 22:05 09/09/24 21:12 99 09/09/24 19:46 09/09/24 19:00 99 09/09/24 18:30 98 09/09/24 18:00 98 09/09/24 17:00 96 09/09/24 16:00 98 09/09/24 15:00 97 09/09/24 14:30 97 09/09/24 14:00 95 09/09/24 13:00 95 09/09/24 12:05 97 09/09/24 12:00 97 Intake and Output 09/09/24 09/10/24 09/10/24 22:59 06:59 14:59 Other: # Voids 3 Weight 71.214 kg GENERAL DESCRIPTION: Elderly female lying in bed, no distress. No tachypnea or accessory muscle of respiration use. HEENT: Shows Pallor , no scleral icterus. Oral mucous membrane is dry. No pharyngeal erythema or thrush NECK: Trachea central, no thyromegaly. LUNGS: Unlabored breathing. Clear to auscultation anteriorly. No wheeze or crackle. HEART: S1, S2, regular rate and rhythm. No loud murmur ABDOMEN: Soft, mild tenderness EXTREMITIES: No edema of feet. SKIN: No rash, no masses palpable. NEUROLOGICAL: The patient is awake, alert, oriented x3, mood and affect normal. Results CBC & Chem 7: 09/10/24 10:55 09/10/24 12:02 Labs: Abnormal Lab Results - Last 24 Hours (Table) 09/09/24 09/09/24 09/09/24 Range/Units 11:33 11:33 11:33 Hgb (11.4-16.0) gm/dL Plt Count 99 L (150-450) k/uL Lymphocytes # 0.2 L (1.0-4.8) k/uL PT 14.3 H (10.0-12.5) sec INR 1.4 H (<1.2) Sodium (137-145) mmol/L Carbon Dioxide (22-30) mmol/L BUN (7-17) mg/dL Creatinine (0.52-1.04) mg/dL Glucose (74-99) mg/dL Plasma Lactic Acid Agustin (0.7-2.0) mmol/L Calcium (8.4-10.2) mg/dL AST (14-36) U/L ALT (4-34) U/L Total Protein (6.3-8.2) g/dL Albumin (3.5-5.0) g/dL Procalcitonin (0.02-0.50) ng/mL Urine Appearance Cloudy H (Clear) Urine Protein 2+ H (Negative) Urine Blood Moderate H (Negative) Ur Leukocyte Esterase Trace H (Negative) Urine WBC 9 H (0-5) /hpf Urine Bacteria Occasional H (None) /hpf Urine Mucus Rare H (None) /hpf 09/09/24 09/09/24 09/09/24 Range/Units 11:33 11:33 11:33 Hgb (11.4-16.0) gm/dL Plt Count (150-450) k/uL Lymphocytes # (1.0-4.8) k/uL PT (10.0-12.5) sec INR (<1.2) Sodium 135 L (137-145) mmol/L Carbon Dioxide 19 L (22-30) mmol/L BUN 21 H (7-17) mg/dL Creatinine 1.07 H (0.52-1.04) mg/dL Glucose 114 H (74-99) mg/dL Plasma Lactic Acid Agustin 4.5 H* (0.7-2.0) mmol/L Calcium 7.7 L (8.4-10.2) mg/dL AST 431 H (14-36) U/L ALT 434 H (4-34) U/L Total Protein 5.5 L (6.3-8.2) g/dL Albumin 3.1 L (3.5-5.0) g/dL Procalcitonin 11.70 H (0.02-0.50) ng/mL Urine Appearance (Clear) Urine Protein (Negative) Urine Blood (Negative) Ur Leukocyte Esterase (Negative) Urine WBC (0-5) /hpf Urine Bacteria (None) /hpf Urine Mucus (None) /hpf 09/10/24 Range/Units 10:55 Hgb 11.1 L (11.4-16.0) gm/dL Plt Count 69 L (150-450) k/uL Lymphocytes # 0.7 L (1.0-4.8) k/uL PT (10.0-12.5) sec INR (<1.2) Sodium (137-145) mmol/L Carbon Dioxide (22-30) mmol/L BUN (7-17) mg/dL Creatinine (0.52-1.04) mg/dL Glucose (74-99) mg/dL Plasma Lactic Acid Agustin (0.7-2.0) mmol/L Calcium (8.4-10.2) mg/dL AST (14-36) U/L ALT (4-34) U/L Total Protein (6.3-8.2) g/dL Albumin (3.5-5.0) g/dL Procalcitonin (0.02-0.50) ng/mL Urine Appearance (Clear) Urine Protein (Negative) Urine Blood (Negative) Ur Leukocyte Esterase (Negative) Urine WBC (0-5) /hpf Urine Bacteria (None) /hpf Urine Mucus (None) /hpf Assessment and Plan (1) Acute diverticulitis Current Visit: Yes Status: Acute Code(s): K57.92 - DVTRCLI OF INTEST, PART UNSP, W/O PERF OR ABSCESS W/O BLEED SNOMED Code(s): 940414920 Plan: 1patient presented hospital with fever and this patient apparently seem to have a similar symptom when getting infusion of her chemotherapy with a question of possible drug reaction as the patient did not have any elevated white count on presentation to the hospital and no significant tachycardia was noticed with a fever of 105 F however the patient did have abnormality on the CT with uncomplicated diverticulitis and may have become contributing to some of her symptomatology 2-patient is adequately covered with Zosyn 3.375 g 8-hour to continue along with bowel rest 3-we will check inflammatory markers We will follow on clinical condition and cultures to further adjust medication if needed Thank you for this consultation we will follow the patient along with you Dictation was produced using [employer] dictation software. please excuse any grammatical, word or spelling errors. Time with Patient: Greater than 30
[2024-09-11 00:59] LABS: Glucose,Whole Blood 87 mg/dL (70-110)
[2024-09-11] MEDS: IPRATROPIUM-ALBUTEROL 3 ML NEB INHALATION STA (01:22)
[2024-09-11] MEDS: methylPREDNISolone SOD SUCCI 125 MG/2 ML VIAL IV STA (01:27)
[2024-09-11] MEDS: FUROSEMIDE 10 MG/ML 2 ML VIAL IV STA ×2 (01:32→01:51)
[2024-09-11] MEDS: diphenhydrAMINE 50 MG/ML 1 ML VIAL IVP STA (01:33)
[2024-09-11] MEDS: ACETAMINOPHEN TAB 325 MG TAB PO PRN (01:50)
--- NOTE | 2024-09-11 04:23 | XR ---
EXAM: XR Chest, 1 View CLINICAL HISTORY: ITS.REASON XR Reason: SOB TECHNIQUE: Frontal view of the chest. COMPARISON: No relevant prior studies available. FINDINGS: Lungs: No consolidation or mass. Moderate vascular congestion Pleural space: No acute findings. Heart: cardiomegaly. Bones/joints: No acute findings. IMPRESSION: Moderate vascular congestion
[2024-09-11] MEDS: IPRATROPIUM-ALBUTEROL 3 ML NEB INHALATION PRN (05:37)
[2024-09-11] MEDS: dexAMETHasone 4 MG TAB PO SCH (09:14)
[2024-09-11 10:42] LABS: Basophils # (A) 0.02 X 10*3/uL (0.00-0.10); Basophils % (A) 0.2 %; Eosinophils # (A) 0 X 10*3/uL (0.04-0.35); Eosinophils % (A) 0 %; HCT 31.8 % (37.2-46.3); HGB 10.9 g/dL (12.0-15.0); Immature Platelet Fraction 12.6 % (1.1-6.1); Lymphocytes # (A) 0.89 X 10*3/uL (0.90-5.00); Lymphocytes % (A) 8.4 %; MCHC 34.3 g/dL (32.0-37.0); MCV 84.6 FL (80.0-97.0); Mean Platelet Volume 13.2 FL (9.5-12.2); Monocytes % (A) 0.9 %; NRBC Per 100 WBC 0 X 10*3/uL (0.00-0.01); Neutrophils # (A) 9.51 X 10*3/uL (1.80-7.70); Neutrophils % (A) 89.3 %; Platelet Count 62 X 10*3/uL (140-440); RBC 3.76 X 10*6/uL (4.10-5.20); RDW 14.6 % (11.5-14.5); WBC 10.65 X 10*3/uL (4.50-10.00)
[2024-09-11 10:45] LABS: BUN/Creat Ratio 18.75 Ratio (12.00-20.00); Carbon Dioxide 14.8 mmol/L (21.6-31.8); Chloride 112 mmol/L (96-109); Glucose 161 mg/dL (70-110); Potassium 3.1 mmol/L (3.5-5.5); Sodium 139 mmol/L (135-145)
[2024-09-11 10:46] LABS: ALT 307 U/L (8-44); AST 114 U/L (13-35); Albumin 3.5 g/dL (3.8-4.9); Albumin/Globulin Ratio 1.94 Ratio (1.60-3.17); Alkaline Phosphatase 71 U/L (41-126); Calcium 7.1 mg/dL (8.7-10.3); Globulin 1.8 g/dL (1.6-3.3); Total Bilirubin 0.6 mg/dL (0.3-1.2); Total Protein 5.3 g/dL (6.2-8.2)
[2024-09-11] MEDS: MAG HYDROX/AL HYDROX/SIMETH 30 ML, HYOSCYAMINE ELIXIR 10 ML, LIDOCAINE VISCOUS 2% 10 ML PO ONE (12:35)
[2024-09-11] MEDS: POTASSIUM CHLORIDE ER 20 MEQ TAB.ER PO STA (13:36)
--- NOTE | 2024-09-11 14:06 | P.PN ---
Subjective Progress Note Date: 09/11/24 The patient had some chills and rigors overnight. She reports increased frequency of bowel movements, but these are now formed. She has been tolerating clear liquids well, and feels hungry. Fever pattern is improved. Objective - Vital Signs Vital signs: Vital Signs Temp 97.7 F 09/11/24 07:28 Pulse 89 09/11/24 07:28 Resp 20 09/11/24 07:28 BP 106/54 09/11/24 07:28 Pulse Ox 95 09/11/24 07:28 FiO2 Intake & Output 09/10/24 09/11/24 09/11/24 18:59 06:59 18:59 Intake Total 1140 Balance 1140 Intake: Intake, IV Titration 1140 Amount Piperacillin-Tazobactam 3 100 .375 gm In Sodium Chloride 0.9% 100 ml @ 25 mls/hr IVPB Q8H DARREN Rx#: [id number] Sodium Chloride 0.9% 1, 1040 000 ml @ 130 mls/hr IV . [id number] DARREN Rx#:[id number] Other: # Voids 3 # Bowel Movements 1 - Constitutional General appearance: Present: no acute distress - EENT Eyes: Present: EOMI ENT: Present: hearing grossly normal, normal oropharynx - Respiratory Respiratory: bilateral: CTA - Cardiovascular Rhythm: regular Heart sounds: normal: S1, S2 - Gastrointestinal General gastrointestinal: Present: soft Localized gastrointestinal: tender: RUQ (Mild), LLQ (Mild) - Integumentary Integumentary: Present: normal - Neurologic Neurologic: Present: CNII-XII intact - Musculoskeletal Musculoskeletal: Present: generalized weakness, strength equal bilaterally - Psychiatric Psychiatric: Present: A&O x's 3, appropriate affect - Labs CBC & Chem 7: 09/11/24 03:07 09/11/24 03:07 Labs: Abnormal Lab Results - Last 24 Hours (Table) 09/11/24 09/11/24 Range/Units 03:07 03:07 WBC 10.65 H (4.50-10.00) X 10*3/uL RBC 3.76 L (4.10-5.20) X 10*6/uL Hgb 10.9 L (12.0-15.0) g/dL Hct 31.8 L (37.2-46.3) % RDW 14.6 H (11.5-14.5) % Plt Count 62 L (140-440) X 10*3/uL MPV 13.2 H (9.5-12.2) FL Immature Gran # 0.13 H (0.00-0.04) X 10*3/uL Neutrophils # 9.51 H (1.80-7.70) X 10*3/uL Lymphocytes # 0.89 L (0.90-5.00) X 10*3/uL Monocytes # 0.10 L (0.20-1.00) X 10*3/uL Eosinophils # 0 L (0.04-0.35) X 10*3/uL Immature Plt Fraction 12.6 H (1.1-6.1) % Potassium 3.1 L (3.5-5.5) mmol/L Chloride 112 H (96-109) mmol/L Carbon Dioxide 14.8 L (21.6-31.8) mmol/L Anion Gap 12.20 H (4.00-12.00) mmol/L Glucose 161 H (70-110) mg/dL Calcium 7.1 L (8.7-10.3) mg/dL AST 114 H (13-35) U/L ALT 307 H (8-44) U/L C-Reactive Protein 9.70 H (0.00-0.80) mg/dL Total Protein 5.3 L (6.2-8.2) g/dL Albumin 3.5 L (3.8-4.9) g/dL Microbiology - Last 24 Hours (Table) 09/09/24 17:35 Blood Culture - Preliminary Blood 09/09/24 11:33 Blood Culture - Preliminary Blood Assessment and Plan (1) Fever Narrative/Plan: Fever pattern is improved overall. Microbiology labs are negative so far. At this time the primary differential would likely be intercurrent diverticulitis, with a more exaggerated systemic inflammatory response to the same, due to her receiving chemotherapy and PD-1 immunotherapy at the same time. Inflammatory dr emily reaction, separate from her earlier hypersensitivity reaction is also within the differential. -Continue antibiotics, with decision for outpatient antibiotics per ID. -Await finalization of cultures over the next 24 hours Current Visit: Yes Status: Acute Code(s): R50.9 - FEVER, UNSPECIFIED SNOMED Code(s): 893274811 (2) Chemotherapy adverse reaction Narrative/Plan: As noted previously, the patient's symptoms during her infusion were typical of her Taxol hypersensitivity reaction. The subsequent symptoms that brought her to the hospital are, most likely, a different phenomenon from the same. As noted a primary treatment related inflammatory phenomenon cannot be ruled out but to distinguish that from diverticulitis related effect the patient would need to be rechallenged with the regimen. Given that her symptoms were not life-threatening, and there is a definite possibility of this being due to another etiology, rechallenge with appropriate precautions would be quite reasonable in my opinion. The patient will follow-up with her primary oncologist in this regard postdischarge Current Visit: Yes Status: Acute Code(s): T45.1X5A - ADVERSE EFFECT OF ANT INEOPLASTIC AND IMMUNOSUP DRUGS, INIT SNOMED Code(s): 004801242
--- NOTE | 2024-09-11 14:24 | P.PN ---
Subjective Progress Note Date: 09/11/24 Hospital Course: Patient is a very pleasant 64-year-old female with a past medical history of hypertension and breast cancer currently undergoing chemotherapy. She reports receiving her first dose of second round of chemotherapy yesterday for treatment of her triple negative breast cancer at [facility]. Patient reports that she had a reaction to her chemotherapy yesterday and received a dose of epinephrine, Benadryl and Solu-Medrol and was discharged back home. Patient reports she woke up feeling overall ill with chills and generalized achiness and mild epigastric pain. She noted herself to be febrile so she called her oncologist who directed her to go to the nearest emergency department for evaluation. Patient denies having any known ill contacts or any other complaints at this time. She denies having headache, lightheadedness, dizziness, chest pain, palpitations, shortness of breath, cough or congestion, nausea, vomiting, or experiencing any numbness/tingling/weakness/swelling in her extremities. Patient does report mild epigastric discomfort and decreased appetite. Upon arrival to our facility, patient underwent evaluation in the emergency department. Vital signs upon arrival show blood pressure 119/55, heart rate 95, respiratory rate 20, temp 105.2 F, and SpO2 of 97% on room air. Chest x-ray was completed showing borderline cardiomegaly and interstitial prominence with pulmonary vascular congestion versus bronchitis or atypical pneumonia. Labs completed and reviewed. CBC unremarkable with exception of thrombocytopenia with platelet count of 99. Coagulation profile showing elevated PT of 14.3 and INR of 1.4. BMP showing sodium 135, potassium 3.8, chloride 106, bicarb 19, and anion gap of 10. Renal function slightly elevated with BUN of 21, creatinine 1.07, GFR 55. Blood glucose 114. Lactic acid 4.5. Liver profile showing elevated AST of 431 and ALT of 434. Urinalysis negative for infection. Influenza A, influenza B, RSV, and COVID PCR negative. Liver ultrasound showing slightly hypoechoic appearance of the liver may be on a technical basis but also seen with hepatitis, no gallstones or biliary ductal dilation. blood cultures were obtained both peripherally and from patient's Chemo-Port that was placed approximately 6 weeks ago. Patient was started on broad-spectrum antibiotics and admitted under our services with consultation to infectious disease and oncology. Physical exam: Patient seen and fully evaluated at bedside this morning. She reports feeling better but not quite herself still. She reports improvement of pain in abdomen but remains slightly tender with palpation. Patient reports significant acid reflux and continues to feel very fatigued and tired. Patient requesting to have diet advanced as she is not tolerating the clear liquid diet stating broth is too greasy and is worsening her acid reflux. Vital signs reviewed and stable. General: Nontoxic, no distress and appears stated age. Derm: Skin warm and dry, normal coloration for ethnicity. Head: Atraumatic, normocephalic and symmetric. Eyes: EOM's intact, no lid lag, and anicteric sclera Mouth: no lip lesions, mucus membranes moist Cardiovascular: regular rate and rhythm with normal S1S2, no murmur, positive posterior tibial pulses bilaterally, and cap refill < 2 seconds. Lungs: Respirations even, regular, and unlabored on room air. Lungs CTA bilaterally, no rhonchi, no rales, no wheezing, and no accessory muscle usage. Abdominal: soft, tenderness upon palpation to epigastric region, no guarding, no appreciable organomegaly Ext: ROM intact. No gross muscle atrophy, no edema, no contractures Neuro: Speech clear, face symmetrical and CN II-XII grossly intact with no noted focal neuro deficits Psych: Alert and oriented to person, place, time, and situation. Appropriate and pleasant affect. Assessment and Plan of Care: Sigmoid diverticulitis Sepsis on arrival, secondary to above Pyrexia leukocytosis while undergoing chemotherapy Bicytopenia Lactic acidosis Transaminitis with hepatic steatosis Breast cancer undergoing chemotherapy -CT abdomen and pelvis revealing mild uncomplicated sigmoid diverticulitis, hepatic steatosis, and mild soft tissue edema. -Continue IV antibiotics with Zosyn 3.375 g every 8 hours. -Infectious disease following, reviewed documentation in chart. -Oncology following, reviewed documentation in chart. -Lactic acidosis resolved after IV fluid hydration. -Blood cultures showing no growth to date. CRP elevated at 9.70. Procalcitonin elevated at 11.70. -Continue symptomatic care and pain management. -Hepatitis panel nonreactive. Data and imaging reviewed: -Morning labs reviewed. CBC showing leukocytosis with WBC count of 10.65 and bicytopenia with hemoglobin of 10.9 and platelet count of 62. BMP showing hypokalemia with potassium of 3.1 and high anion gap metabolic acidosis with chloride of 112, bicarb of 14.8, and anion gap of 12.20. Blood glucose 161. Liver profile showing improvement in transaminitis with AST of 114, ALT of 307, and alkaline phosphatase of 71. CRP elevated at 9.70. Procalcitonin elevated at 11.70. -Vital signs reviewed. Blood pressure 106/54, heart rate 89, respiratory rate 20, temp 97.7 F, and SpO2 of 95% on room air. CODE STATUS: Full code DVT prophylaxis: Lovenox Anticipated discharge date: Pending clinical course Anticipated discharge place: Home Patient was seen independently by Nurse Practitioner. This document was prepared using [employer] dictation software. Please allow for errors in sales assistants and salespersons while rare they do occur. Javad Mccray NP rendered care for this patient independently, reviewed the findings and plan as documented in the note above and agree with plan. I did not physically speak with or examine the patient on this date. Objective - Vital Signs Vital signs: Vital Signs Temp 97.7 F 09/11/24 07:28 Pulse 89 09/11/24 07:28 Resp 20 09/11/24 07:28 BP 106/54 09/11/24 07:28 Pulse Ox 95 09/11/24 07:28 FiO2 Intake & Output 09/10/24 09/11/24 09/11/24 18:59 06:59 18:59 Intake Total 1140 Balance 1140 Intake: Intake, IV Titration 1140 Amount Piperacillin-Tazobactam 3 100 .375 gm In Sodium Chloride 0.9% 100 ml @ 25 mls/hr IVPB Q8H [facility] Rx#: [id number] Sodium Chloride 0.9% 1, 1040 000 ml @ 130 mls/hr IV . Q7H42M [facility] Rx#:[id number] Other: # Voids 3 # Bowel Movements 1 - Labs CBC & Chem 7: 09/11/24 03:07 09/11/24 03:07 Labs: Abnormal Lab Results - Last 24 Hours (Table) 09/10/24 09/10/24 Range/Units 10:55 12:02 Hgb 11.1 L (11.4-16.0) gm/dL Plt Count 69 L (150-450) k/uL Lymphocytes # 0.7 L (1.0-4.8) k/uL Chloride 118 H (98-107) mmol/L Carbon Dioxide 15 L (22-30) mmol/L BUN 20 H (7-17) mg/dL Glucose 164 H (74-99) mg/dL Calcium 6.8 L (8.4-10.2) mg/dL AST 207 H (14-36) U/L ALT 343 H (4-34) U/L Total Protein 5.4 L (6.3-8.2) g/dL Albumin 2.9 L (3.5-5.0) g/dL Microbiology - Last 24 Hours (Table) 09/09/24 17:35 Blood Culture - Preliminary Blood 09/09/24 11:33 Blood Culture - Preliminary Blood
[2024-09-11] MEDS: MAG HYDROX/AL HYDROX/SIMETH 30 ML, LIDOCAINE VISCOUS 2% 30 ML, NYSTATIN 100,000 UNIT/ML... PO SCH (21:08)
--- NOTE | 2024-09-11 23:20 | P.PN ---
Subjective Progress Note Date: 09/11/24 Principal diagnosis: Reason for follow-up is fever/diverticulitis Patient is a 64-year-old female with a past medical history significant for breast cancer diagnosed April 2024 and has been on chemotherapy also with a history of hypertension reflux patient presenting to the hospital for evaluation of possible drug reaction, patient did have a high-grade fever on admission subsequent workup including a CT abdominal pelvis suspicious for sigmoid diverticulitis. On today's evaluation that is 09/11/2024, Patient did have a fever of 101 F at 2 AM the patient is afebrile since then patient is currently on room air and denies having any shortness of breath, the patient denies any chest pain or cough, the patient denies any nausea vomiting denies any worsening abdominal pain or diarrhea. The patient white count is 10.65 creatinine 0.8 CRP is 9.70 blood cultures are pending Objective - Vital Signs Vital signs: Vital Signs Temp 97.7 F 09/11/24 07:28 Pulse 89 09/11/24 07:28 Resp 20 09/11/24 07:28 BP 106/54 09/11/24 07:28 Pulse Ox 95 09/11/24 07:28 FiO2 Intake & Output 09/10/24 09/11/24 09/11/24 18:59 06:59 18:59 Intake Total 1140 Balance 1140 Intake: Intake, IV Titration 1140 Amount Piperacillin-Tazobactam 3 100 .375 gm In Sodium Chloride 0.9% 100 ml @ 25 mls/hr IVPB Q8H [facility] Rx#: [id number] Sodium Chloride 0.9% 1, 1040 000 ml @ 130 mls/hr IV . Q7H42M [facility] Rx#:[id number] Other: # Voids 3 # Bowel Movements 1 - Exam GENERAL DESCRIPTION: An elderly female lying in bed in no distress RESPIRATORY SYSTEM: Unlabored breathing , decreased breath sounds at bases HEART: S1 S2 regular rate and rhythm , ABDOMEN: Soft , no tenderness EXTREMITIES: No edema feet - Labs CBC & Chem 7: 09/11/24 03:07 09/11/24 03:07 Labs: Abnormal Lab Results - Last 24 Hours (Table) 09/10/24 09/10/24 Range/Units 10:55 12:02 Hgb 11.1 L (11.4-16.0) gm/dL Plt Count 69 L (150-450) k/uL Lymphocytes # 0.7 L (1.0-4.8) k/uL Chloride 118 H (98-107) mmol/L Carbon Dioxide 15 L (22-30) mmol/L BUN 20 H (7-17) mg/dL Glucose 164 H (74-99) mg/dL Calcium 6.8 L (8.4-10.2) mg/dL AST 207 H (14-36) U/L ALT 343 H (4-34) U/L Total Protein 5.4 L (6.3-8.2) g/dL Albumin 2.9 L (3.5-5.0) g/dL Microbiology - Last 24 Hours (Table) 09/09/24 17:35 Blood Culture - Preliminary Blood 09/09/24 11:33 Blood Culture - Preliminary Blood Assessment and Plan (1) Acute diverticulitis Current Visit: Yes Status: Acute Code(s): K57.92 - DVTRCLI OF INTEST, PART UNSP, W/O PERF OR ABSCESS W/O BLEED SNOMED Code(s): 314050782 Plan: 1patient presented hospital with fever and this patient apparently seem to have a similar symptom when getting infusion of her chemotherapy with a question of possible drug reaction as the patient did not have any elevated white count on presentation to the hospital and no significant tachycardia was noticed with a fever of 105 F however the patient did have abnormality on the CT with uncomplicated diverticulitis and may have become contributing to some of her symptomatology 2-patient did have improvement in her fever pattern white count is slightly up today continue to monitor closely patient will be treated with Zosyn 3.375 g 8- hour along with bowel rest Dictation was produced using [employer] dictation software. please excuse any grammatical, word or spelling errors. Time with Patient: Less than 30
[2024-09-12 08:49] LABS: Magnesium 2.5 mg/dL (1.5-2.4)
[2024-09-12 08:55] LABS: ALT 227 U/L (8-44); AST 62 U/L (13-35); Albumin 3.3 g/dL (3.8-4.9); Albumin/Globulin Ratio 1.74 Ratio (1.60-3.17); Alkaline Phosphatase 62 U/L (41-126); BUN/Creat Ratio 28.17 Ratio (12.00-20.00); Blood Urea Nitrogen 16.9 mg/dL (9.0-27.0); Carbon Dioxide 21.1 mmol/L (21.6-31.8); Chloride 114 mmol/L (96-109); Globulin 1.9 g/dL (1.6-3.3); Glucose 138 mg/dL (70-110); Potassium 4.4 mmol/L (3.5-5.5); Sodium 143 mmol/L (135-145); Total Bilirubin 0.6 mg/dL (0.3-1.2); Total Protein 5.2 g/dL (6.2-8.2)
[2024-09-12 09:49] LABS: HCT 30.5 % (37.2-46.3); HGB 10.5 g/dL (12.0-15.0); Immature Platelet Fraction 16.4 % (1.1-6.1); MCH 29.4 pg (27.0-32.0); MCHC 34.4 g/dL (32.0-37.0); MCV 85.4 FL (80.0-97.0); Mean Platelet Volume 14.4 FL (9.5-12.2); NRBC Per 100 WBC 0 X 10*3/uL (0.00-0.01); Platelet Count 52 X 10*3/uL (140-440); RBC 3.57 X 10*6/uL (4.10-5.20); RDW 14.7 % (11.5-14.5)
[2024-09-12] MEDS: IPRATROPIUM-ALBUTEROL 3 ML NEB INHALATION STA (09:51)
--- NOTE | 2024-09-12 15:37 | P.PN ---
Subjective Progress Note Date: 09/12/24 No acute events. Fever now resolved. Blood culture negative. Continues Zosyn. Denies n/v, diarrhea improving. WBC 6.9, hgb 10.5, plt 52 Objective - Vital Signs Vital signs: Vital Signs Temp 97.1 F L 09/12/24 07:16 Pulse 72 09/12/24 09:44 Resp 18 09/12/24 07:16 BP 156/77 09/12/24 07:16 Pulse Ox 98 09/12/24 07:16 FiO2 Intake & Output 09/11/24 09/12/24 09/12/24 18:59 06:59 18:59 Intake Total 660 540 Output Total 0 Balance 660 540 Intake: Oral 660 540 Output: Stool 0 Other: # Voids 0 # Bowel Movements 1 1 - Constitutional General appearance: Present: average body habitus, no acute distress - EENT Eyes: Present: anicteric sclerae, EOMI ENT: Present: hearing grossly normal - Respiratory Details: breathing mildly labored (after ambulation) - Cardiovascular Details: well perfused - Integumentary Integumentary: Absent: cyanotic, jaundiced - Psychiatric Psychiatric: Present: A&O x's 3 - Labs CBC & Chem 7: 09/12/24 05:35 09/12/24 05:35 Labs: Abnormal Lab Results - Last 24 Hours (Table) 09/12/24 09/12/24 Range/Units 05:35 05:35 RBC 3.57 L (4.10-5.20) X 10*6/uL Hgb 10.5 L (12.0-15.0) g/dL Hct 30.5 L (37.2-46.3) % RDW 14.7 H (11.5-14.5) % Plt Count 52 L (140-440) X 10*3/uL MPV 14.4 H (9.5-12.2) FL Immature Plt Fraction 16.4 H (1.1-6.1) % Chloride 114 H (96-109) mmol/L Carbon Dioxide 21.1 L (21.6-31.8) mmol/L BUN/Creatinine Ratio 28.17 H (12.00-20.00) Ratio Glucose 138 H (70-110) mg/dL Calcium 8.0 L (8.7-10.3) mg/dL Magnesium 2.5 H (1.5-2.4) mg/dL AST 62 H (13-35) U/L ALT 227 H (8-44) U/L Total Protein 5.2 L (6.2-8.2) g/dL Albumin 3.3 L (3.8-4.9) g/dL Microbiology - Last 24 Hours (Table) 09/09/24 17:35 Blood Culture - Preliminary Blood 09/09/24 11:33 Blood Culture - Preliminary Blood Assessment and Plan (1) Acute diverticulitis Current Visit: Yes Status: Acute Priority: High Code(s): K57.92 - DVTRCLI OF INTEST, PART UNSP, W/O PERF OR ABSCESS W/O BLEED SNOMED Code(s): 523639099 (2) Chemotherapy adverse reaction Current Visit: Yes Status: Acute Priority: High Code(s): T45.1X5A - ADVERSE EFFECT OF ANTINEOPLASTIC AND IMMUNOSUP DRUGS, INIT SNOMED Code(s): 286290997 (3) Fever Current Visit: Yes Status: Acute Priority: High Code(s): R50.9 - FEVER, UNSPECIFIED SNOMED Code(s): 704282577 Plan: Fever: Fever now resolved. Microbiology labs negative at 48 hours. At this time the primary differential would likely be intercurrent diverticulitis, with a more exaggerated systemic inflammatory response to the same, due to her receiving chemotherapy and PD-1 immunotherapy at the same time. Inflammatory drug reaction, separate from her earlier hypersensitivity reaction is also within the differential. -Continue antibiotics, with decision for outpatient antibiotics per ID. 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 The subsequent symptoms that brought her to the hospital are, most likely, a different phenomenon from the same. As noted a primary treatment related inflammatory phenomenon cannot be ruled out but to distinguish that from diverticulitis related effect the patient would need to be rechallenged with the regimen. Given that her symptoms were not life-threatening, and there is a definite possibility of this being due to another etiology, rechallenge with appropriate precautions would be quite reasonable in my opinion. The patient will follow-up with her primary oncologist in this regard post-discharge
--- NOTE | 2024-09-12 17:15 | P.PN ---
Subjective Progress Note Date: 09/12/24 Hospital Course: Patient is a very pleasant 64-year-old female with a past medical history of hypertension and breast cancer currently undergoing chemotherapy. She reports receiving her first dose of second round of chemotherapy yesterday for treatment of her triple negative breast cancer at [facility]. Patient reports that she had a reaction to her chemotherapy yesterday and received a dose of epinephrine, Benadryl and Solu-Medrol and was discharged back home. Patient reports she woke up feeling overall ill with chills and generalized achiness and mild epigastric pain. She noted herself to be febrile so she called her oncologist who directed her to go to the nearest emergency department for evaluation. Patient denies having any known ill contacts or any other complaints at this time. She denies having headache, lightheadedness, dizziness, chest pain, palpitations, shortness of breath, cough or congestion, nausea, vomiting, or experiencing any numbness/tingling/weakness/swelling in her extremities. Patient does report mild epigastric discomfort and decreased appetite. Upon arrival to our facility, patient underwent evaluation in the emergency department. Vital signs upon arrival show blood pressure 119/55, heart rate 95, respiratory rate 20, temp 105.2 F, and SpO2 of 97% on room air. Chest x-ray was completed showing borderline cardiomegaly and interstitial prominence with pulmonary vascular congestion versus bronchitis or atypical pneumonia. Labs completed and reviewed. CBC unremarkable with exception of thrombocytopenia with platelet count of 99. Coagulation profile showing elevated PT of 14.3 and INR of 1.4. BMP showing sodium 135, potassium 3.8, chloride 106, bicarb 19, and anion gap of 10. Renal function slightly elevated with BUN of 21, creatinine 1.07, GFR 55. Blood glucose 114. Lactic acid 4.5. Liver profile showing elevated AST of 431 and ALT of 434. Urinalysis negative for infection. Influenza A, influenza B, RSV, and COVID PCR negative. Liver ultrasound showing slightly hypoechoic appearance of the liver may be on a technical basis but also seen with hepatitis, no gallstones or biliary ductal dilation. blood cultures were obtained both peripherally and from patient's Chemo-Port that was placed approximately 6 weeks ago. Patient was started on broad-spectrum antibiotics and admitted under our services with consultation to infectious disease and oncology. Physical exam: Patient seen and fully evaluated at bedside this morning. Patient is feeling slightly better each day. She has now been 24 hours afebrile. Symptoms appear to be improving. Patient continues to report mild abdominal discomfort but also states improving. Diet has been advanced and patient appears to be tolerating and denies any episodes of nausea or vomiting. Vital signs reviewed and stable. General: Nontoxic, no distress and appears stated age. Derm: Skin warm and dry, normal coloration for ethnicity. Head: Atraumatic, normocephalic and symmetric. Eyes: EOM's intact, no lid lag, and anicteric sclera Mouth: no lip lesions, mucus membranes moist Cardiovascular: regular rate and rhythm with normal S1S2, no murmur, positive posterior tibial pulses bilaterally, and cap refill < 2 seconds. Lungs: Respirations even, regular, and unlabored on room air. Lungs CTA bilaterally, no rhonchi, no rales, no wheezing, and no accessory muscle usage. Abdominal: soft, tenderness upon palpation to epigastric region, no guarding, no appreciable organomegaly Ext: ROM intact. No gross muscle atrophy, no edema, no contractures Neuro: Speech clear, face symmetrical and CN II-XII grossly intact with no noted focal neuro deficits Psych: Alert and oriented to person, place, time, and situation. Appropriate and pleasant affect. Assessment and Plan of Care: Sigmoid diverticulitis Sepsis on arrival, secondary to above Pyrexia leukocytosis while undergoing chemotherapy Bicytopenia Lactic acidosis Transaminitis with hepatic steatosis Breast cancer undergoing chemotherapy -CT abdomen and pelvis revealing mild uncomplicated sigmoid diverticulitis, hepatic steatosis, and mild soft tissue edema. -Continue IV antibiotics with Zosyn 3.375 g every 8 hours. -Infectious disease following, reviewed documentation in chart. -Oncology following, reviewed documentation in chart. -Lactic acidosis resolved after IV fluid hydration. -Blood cultures showing no growth to date. CRP elevated at 9.70. Procalcitonin elevated at 11.70. -Continue symptomatic care and pain management. -Hepatitis panel nonreactive. Hypertension -Initially antihypertensive medications were held as patient having recurrent episodes of hypotension. However, blood pressure increasing 150 systolic, okay to resume losartan 50 mg daily. Data and imaging reviewed: -Morning labs reviewed. CBC showing resolution of leukocytosis with WBC count decreasing to 6.90 and continued bicytopenia with hemoglobin of 10.5 and platelet count of 52. BMP showing non-anion gap metabolic acidosis with chloride of 114, bicarb of 21.1, and anion gap of 7.90. Blood glucose was 138. Magnesium was elevated at 2.5. Transaminitis continues to improve with AST of 6 2, ALT of 227, and alkaline phosphatase of 62. C. difficile negative. -Vital signs reviewed. Blood pressure 106/54, heart rate 89, respiratory rate 20, temp 97.7 F, and SpO2 of 95% on room air. CODE STATUS: Full code DVT prophylaxis: Lovenox Anticipated discharge date: Pending clinical course Anticipated discharge place: Home Patient was seen independently by Nurse Practitioner. This document was prepared using [employer] dictation software. Please allow for errors in hypo splasher while rare they do occur. Javad Mccray NP rendered care for this patient independently, reviewed the findings and plan as documented in the note above and agree with plan. I did not physically speak with or examine the patient on this date. Objective - Vital Signs Vital signs: Vital Signs Temp 97.1 F L 09/12/24 07:16 Pulse 72 09/12/24 07:16 Resp 18 09/12/24 07:16 BP 156/77 09/12/24 07:16 Pulse Ox 98 09/12/24 07:16 FiO2 Intake & Output 09/11/24 09/12/24 09/12/24 18:59 06:59 18:59 Intake Total 660 540 Output Total 0 Balance 660 540 Intake: Oral 660 540 Output: Stool 0 Other: # Voids 0 # Bowel Movements 1 - Labs CBC & Chem 7: 09/12/24 05:35 09/12/24 05:35 Labs: Abnormal Lab Results - Last 24 Hours (Table) 09/11/24 09/11/24 Range/Units 03:07 03:07 WBC 10.65 H (4.50-10.00) X 10*3/uL RBC 3.76 L (4.10-5.20) X 10*6/uL Hgb 10.9 L (12.0-15.0) g/dL Hct 31.8 L (37.2-46.3) % RDW 14.6 H (11.5-14.5) % Plt Count 62 L (140-440) X 10*3/uL MPV 13.2 H (9.5-12.2) FL Immature Gran # 0.13 H (0.00-0.04) X 10*3/uL Neutrophils # 9.51 H (1.80-7.70) X 10*3/uL Lymphocytes # 0.89 L (0.90-5.00) X 10*3/uL Monocytes # 0.10 L (0.20-1.00) X 10*3/uL Eosinophils # 0 L (0.04-0.35) X 10*3/uL Immature Plt Fraction 12.6 H (1.1-6.1) % Potassium 3.1 L (3.5-5.5) mmol/L Chloride 112 H (96-109) mmol/L Carbon Dioxide 14.8 L (21.6-31.8) mmol/L Anion Gap 12.20 H (4.00-12.00) mmol/L Glucose 161 H (70-110) mg/dL Calcium 7.1 L (8.7-10.3) mg/dL AST 114 H (13-35) U/L ALT 307 H (8-44) U/L C-Reactive Protein 9.70 H (0.00-0.80) mg/dL Total Protein 5.3 L (6.2-8.2) g/dL Albumin 3.5 L (3.8-4.9) g/dL Microbiology - Last 24 Hours (Table) 09/09/24 17:35 Blood Culture - Preliminary Blood 09/09/24 11:33 Blood Culture - Preliminary Blood
[2024-09-13] MEDS: LOSARTAN 50 MG TAB PO SCH (08:17)
--- NOTE | 2024-09-13 08:21 | P.PN ---
Subjective Progress Note Date: 09/12/24 Principal diagnosis: Reason for follow-up is fever/diverticulitis Patient is a 64-year-old female with a past medical history significant for breast cancer diagnosed April 2024 and has been on chemotherapy also with a history of hypertension reflux patient presenting to the hospital for evaluation of possible drug reaction, patient did have a high-grade fever on admission subsequent workup including a CT abdominal pelvis suspicious for sigmoid diverticulitis. On today's evaluation that is 09/12/2024, patient did have resolution of her fever and has been afebrile, patient is breathing comfortably and is currently on room air, patient denies having any significant cough no chest pain, patient denies nausea vomiting abdominal pain has decreased in intensity. Patient white count normalized to 6.90 creatinine 0.6 blood culture has been negative so far Objective - Vital Signs Vital signs: Vital Signs Temp 97.1 F L 09/12/24 07:16 Pulse 72 09/12/24 09:44 Resp 18 09/12/24 07:16 BP 156/77 09/12/24 07:16 Pulse Ox 98 09/12/24 07:16 FiO2 Intake & Output 09/11/24 09/12/24 09/12/24 18:59 06:59 18:59 Intake Total 660 540 Output Total 0 Balance 660 540 Intake: Oral 660 540 Output: Stool 0 Other: # Voids 0 # Bowel Movements 1 1 - Exam GENERAL DESCRIPTION: An elderly female lying in bed in no distress RESPIRATORY SYSTEM: Unlabored breathing , decreased breath sounds at bases HEART: S1 S2 regular rate and rhythm , ABDOMEN: Soft , no tenderness EXTREMITIES: No edema feet - Labs CBC & Chem 7: 09/12/24 05:35 09/12/24 05:35 Labs: Abnormal Lab Results - Last 24 Hours (Table) 09/12/24 09/12/24 Range/Units 05:35 05:35 RBC 3.57 L (4.10-5.20) X 10*6/uL Hgb 10.5 L (12.0-15.0) g/dL Hct 30.5 L (37.2-46.3) % RDW 14.7 H (11.5-14.5) % Plt Count 52 L (140-440) X 10*3/uL MPV 14.4 H (9.5-12.2) FL Immature Plt Fraction 16.4 H (1.1-6.1) % Chloride 114 H (96-109) mmol/L Carbon Dioxide 21.1 L (21.6-31.8) mmol/L BUN/Creatinine Ratio 28.17 H (12.00-20.00) Ratio Glucose 138 H (70-110) mg/dL Calcium 8.0 L (8.7-10.3) mg/dL Magnesium 2.5 H (1.5-2.4) mg/dL AST 62 H (13-35) U/L ALT 227 H (8-44) U/L Total Protein 5.2 L (6.2-8.2) g/dL Albumin 3.3 L (3.8-4.9) g/dL Microbiology - Last 24 Hours (Table) 09/09/24 17:35 Blood Culture - Preliminary Blood 09/09/24 11:33 Blood Culture - Preliminary Blood Assessment and Plan (1) Acute diverticulitis Current Visit: Yes Status: Acute Priority: High Code(s): K57.92 - DVTRCLI OF INTEST, PART UNSP, W/O PERF OR ABSCESS W/O BLEED SNOMED Code(s): 451617518 Plan: 1patient presented hospital with fever and this patient apparently seem to have a similar symptom when getting infusion of her chemotherapy with a question of possible drug reaction as the patient did not have any elevated white count on presentation to the hospital and no significant tachycardia was noticed with a fever of 105 F however the patient did have abnormality on the CT with uncomplicated diverticulitis and may have become contributing to some of her symptomatology 2-patient did have resolution of her fever white count has normalized, patient is being treated with Zosyn 3.375 g 8-hour will transition to oral antibiotics on discharge Dictation was produced using [employer] dictation software. please excuse any grammatical, word or spelling errors. Time with Patient: Less than 30
[2024-09-13 09:30] LABS: ALT 241 U/L (4-34); AST 105 U/L (14-36); African American GFR (CKD) >90 (>60 ml/min/1.73 sqM); Albumin 2.8 g/dL (3.5-5.0); Albumin/Globulin Ratio 1.3; Alkaline Phosphatase 62 U/L (38-126); Anion Gap 5 mmol/L; Blood Urea Nitrogen 19 mg/dL (7-17); Calcium 8.2 mg/dL (8.4-10.2); Carbon Dioxide 23 mmol/L (22-30); Chloride 111 mmol/L (98-107); Globulin 2.2 g/dL; Glucose 84 mg/dL (74-99); Non-African American GFR(CKD) 86 (>60 ml/min/1.73 sqM); Potassium 3.8 mmol/L (3.5-5.1); Sodium 139 mmol/L (137-145); Total Bilirubin 0.7 mg/dL (0.2-1.3)
[2024-09-13 10:15] LABS: Basophils # (A) 0.01 X 10*3/uL (0.00-0.10); Basophils % (A) 0.2 %; Eosinophils # (A) 0.02 X 10*3/uL (0.04-0.35); Eosinophils % (A) 0.4 %; HCT 29.3 % (37.2-46.3); HGB 9.6 g/dL (12.0-15.0); Lymphocytes # (A) 2.37 X 10*3/uL (0.90-5.00); Lymphocytes % (A) 43.6 %; MCH 28.4 pg (27.0-32.0); MCHC 32.8 g/dL (32.0-37.0); MCV 86.7 FL (80.0-97.0); Monocytes # (A) 0.14 X 10*3/uL (0.20-1.00); Monocytes % (A) 2.6 %; NRBC Per 100 WBC 0 X 10*3/uL (0.00-0.01); Neutrophils # (A) 2.84 X 10*3/uL (1.80-7.70); Neutrophils % (A) 52.3 %; Platelet Count 61 X 10*3/uL (140-440); RBC 3.38 X 10*6/uL (4.10-5.20); RDW 15.2 % (11.5-14.5); WBC 5.43 X 10*3/uL (4.50-10.00)
--- NOTE | 2024-09-13 11:14 | P.PN ---
Subjective Progress Note Date: 09/13/24 Hospital Course: Patient is a very pleasant 64-year-old female with a past medical history of hypertension and breast cancer currently undergoing chemotherapy. She reports receiving her first dose of second round of chemotherapy yesterday for treatment of her triple negative breast cancer at [facility]. Patient reports that she had a reaction to her chemotherapy yesterday and received a dose of epinephrine, Benadryl and Solu-Medrol and was discharged back home. Patient reports she woke up feeling overall ill with chills and generalized achiness and mild epigastric pain. She noted herself to be febrile so she called her oncologist who directed her to go to the nearest emergency department for evaluation. Patient denies having any known ill contacts or any other complaints at this time. She denies having headache, lightheadedness, dizziness, chest pain, palpitations, shortness of breath, cough or congestion, nausea, vomiting, or experiencing any numbness/tingling/weakness/swelling in her extremities. Patient does report mild epigastric discomfort and decreased appetite. Upon arrival to our facility, patient underwent evaluation in the emergency department. Vital signs upon arrival show blood pressure 119/55, heart rate 95, respiratory rate 20, temp 105.2 F, and SpO2 of 97% on room air. Chest x-ray was completed showing borderline cardiomegaly and interstitial prominence with pulmonary vascular congestion versus bronchitis or atypical pneumonia. Labs completed and reviewed. CBC unremarkable with exception of thrombocytopenia with platelet count of 99. Coagulation profile showing elevated PT of 14.3 and INR of 1.4. BMP showing sodium 135, potassium 3.8, chloride 106, bicarb 19, and anion gap of 10. Renal function slightly elevated with BUN of 21, creatinine 1.07, GFR 55. Blood glucose 114. Lactic acid 4.5. Liver profile showing elevated AST of 431 and ALT of 434. Urinalysis negative for infection. Influenza A, influenza B, RSV, and COVID PCR negative. Liver ultrasound showing slightly hypoechoic appearance of the liver may be on a technical basis but also seen with hepatitis, no gallstones or biliary ductal dilation. blood cultures were obtained both peripherally and from patient's Chemo-Port that was placed approximately 6 weeks ago. Patient was started on broad-spectrum antibiotics and admitted under our services with consultation to infectious disease and oncology. Physical exam: Patient seen and fully evaluated at bedside this morning. Patient continues to report feeling better each day but still not at baseline. Her blood pressures appear to be back at baseline and she was restarted on her daily losartan this morning. Discussed with patient and at bedside will monitor for the next 24 hours to ensure blood pressure tolerates resuming antihypertensive medication. She continues to have slight tenderness to epigastric and right upper quadrant region but does admit to it improving daily. She reports resolution of her diarrhea and reports only having 1 loose stool yesterday. Patient has been afebrile for 48 hours now and continues to show improvement da delia. Likely plan for discharge home tomorrow morning. Vital signs reviewed and stable. General: Nontoxic, no distress and appears stated age. Derm: Skin warm and dry, normal coloration for ethnicity. Head: Atraumatic, normocephalic and symmetric. Eyes: EOM's intact, no lid lag, and anicteric sclera Mouth: no lip lesions, mucus membranes moist Cardiovascular: regular rate and rhythm with normal S1S2, no murmur, positive posterior tibial pulses bilaterally, and cap refill < 2 seconds. Lungs: Respirations even, regular, and unlabored on room air. Lungs CTA bilaterally, no rhonchi, no rales, no wheezing, and no accessory muscle usage. Abdominal: soft, tenderness upon palpation to epigastric region, no guarding, no appreciable organomegaly Ext: ROM intact. No gross muscle atrophy, no edema, no contractures Neuro: Speech clear, face symmetrical and CN II-XII grossly intact with no noted focal neuro deficits Psych: Alert and oriented to person, place, time, and situation. Appropriate and pleasant affect. Assessment and Plan of Care: Sigmoid diverticulitis Sepsis on arrival, secondary to above Pyrexia leukocytosis while undergoing chemotherapy Bicytopenia, chemotherapy induced Transaminitis with hepatic steatosis, elevated liver enzymes improving Breast cancer undergoing chemotherapy -CT abdomen and pelvis revealing mild uncomplicated sigmoid diverticulitis, hepatic steatosis, and mild soft tissue edema. -Continue IV antibiotics with Zosyn 3.375 g every 8 hours and plan for discharge home on oral antibiotic therapy. -Infectious disease following, reviewed documentation in chart. -Oncology following, discussed plan in detail with oncology MOBILITY DEVELOPER. Patient to miss scheduled chemotherapy treatment this week and to resume chemotherapy treatment next week. -Blood cultures showing no growth to date. CRP elevated at 9.70. Procalcitonin elevated at 11.70. -Continue symptomatic care and pain management. -Hepatitis panel nonreactive. -C. difficile was negative. Hypertension -Initially antihypertensive medications were held as patient having recurrent episodes of hypotension. However, blood pressures have appeared to return to patient's baseline and losartan 50 mg daily was restarted this morning. Will continue to monitor blood pressure over the next 24 hours and if patient tolerates resumption of this medication plan is for likely discharge tomorrow morning. Lactic acidosis -Lactic acidosis resolved after IV fluid hydration. Data and imaging reviewed: -Morning labs reviewed. CBC showing bicytopenia with hemoglobin of 9.6 and platelet count of 61. BMP showing hyperchloremia with chloride of 111 otherwise normal findings. Blood glucose 84. Magnesium 2.0. Liver enzymes showing total bili of 0.7, AST of 105, ALT of 241, and alkaline phosphatase of 62. -Vital signs reviewed. Blood pressure 160/70, heart rate 73, respiratory rate 17, temp 98.1 F, and SpO2 of 99% on room air. CODE STATUS: Full code DVT prophylaxis: Lovenox Anticipated discharge date: Plan for discharge likely tomorrow morning Anticipated discharge place: Home Patient was seen independently by Nurse Practitioner. This document was prepared using [employer] dictation software. Please allow for errors in metal welder while rare they do occur. Javad Mccray NP rendered care for this patient independently, reviewed the findings and plan as documented in the note above and agree with plan. I did not physically speak with or examine the patient on this date. Objective - Vital Signs Vital signs: Vital Signs Temp 98.1 F 09/13/24 07:46 Pulse 73 09/13/24 07:46 Resp 17 09/13/24 07:46 BP 160/70 09/13/24 07:46 Pulse Ox 99 09/13/24 07:46 FiO2 Intake & Output 09/12/24 09/13/24 09/13/24 18:59 06:59 18:59 Intake Total 350 Balance 350 Intake: Oral 350 Other: Voiding Method Toilet # Voids 1 # Bowel Movements 1 - Labs CBC & Chem 7: 09/13/24 04:31 09/13/24 04:31 Labs: Abnormal Lab Results - Last 24 Hours (Table) 09/12/24 Range/Units 05:35 RBC 3.57 L (4.10-5.20) X 10*6/uL Hgb 10.5 L (12.0-15.0) g/dL Hct 30.5 L (37.2-46.3) % RDW 14.7 H (11.5-14.5) % Plt Count 52 L (140-440) X 10*3/uL MPV 14.4 H (9.5-12.2) FL Immature Plt Fraction 16.4 H (1.1-6.1) % Microbiology - Last 24 Hours (Table) 09/09/24 17:35 Blood Culture - Preliminary Blood 09/09/24 11:33 Blood Culture - Preliminary Blood
--- NOTE | 2024-09-13 11:18 | P.PN ---
Subjective Progress Note Date: 09/10/24 Hospital Course: Patient is a very pleasant 64-year-old female with a past medical history of hypertension and breast cancer currently undergoing chemotherapy. She reports receiving her first dose of second round of chemotherapy yesterday for treatment of her triple negative breast cancer at [facility]. Patient reports that she had a reaction to her chemotherapy yesterday and received a dose of epinephrine, Benadryl and Solu-Medrol and was discharged back home. Patient reports she woke up feeling overall ill with chills and generalized achiness and mild epigastric pain. She noted herself to be febrile so she called her oncologist who directed her to go to the nearest emergency department for evaluation. Patient denies having any known ill contacts or any other complaints at this time. She denies having headache, lightheadedness, dizz iness, chest pain, palpitations, shortness of breath, cough or congestion, nausea, vomiting, or experiencing any numbness/tingling/weakness/swelling in her extremities. Patient does report mild epigastric discomfort and decreased appetite. Upon arrival to our facility, patient underwent evaluation in the emergency department. Vital signs upon arrival show blood pressure 119/55, heart rate 95, respiratory rate 20, temp 105.2 F, and SpO2 of 97% on room air. Chest x-ray was completed showing borderline cardiomegaly and interstitial prominence with pulmonary vascular congestion versus bronchitis or atypical pneumonia. Labs completed and reviewed. CBC unremarkable with exception of thrombocytopenia with platelet count of 99. Coagulation profile showing elevated PT of 14.3 and INR of 1.4. BMP showing sodium 135, potassium 3.8, chloride 106, bicarb 19, and anion gap of 10. Renal function slightly elevated with BUN of 21, creatinine 1.07, GFR 55. Blood glucose 114. Lactic acid 4.5. Liver profile showing elevated AST of 431 and ALT of 434. Urinalysis negative for infection. Influenza A, influenza B, RSV, and COVID PCR negative. Liver ultrasound showing slightly hypoechoic appearance of the liver may be on a technical basis but also seen with hepatitis, no gallstones or biliary ductal dilation. blood cultures were obtained both peripherally and from patient's Chemo-Port that was placed approximately 6 weeks ago. Patient was started on broad-spectrum antibiotics and admitted under our services with consultation to infectious disease and oncology. Physical exam: Patient seen and fully evaluated at bedside she continues to report mild abdominal pain and states 3 episodes of mucousy green diarrhea. She reports continued weakness and fatigue. Vital signs reviewed and stable. General: Nontoxic, no distress and appears stated age. Derm: Skin warm and dry, normal coloration for ethnicity. Head: Atraumatic, normocephalic and symmetric. Eyes: EOM's intact, no lid lag, and anicteric sclera Mouth: no lip lesions, mucus membranes moist Cardiovascular: regular rate and rhythm with normal S1S2, no murmur, positive posterior tibial pulses bilaterally, and cap refill < 2 seconds. Lungs: Respirations even, regular, and unlabored on room air. Lungs CTA bilaterally, no rhonchi, no rales, no wheezing, and no accessory muscle usage. Abdominal: soft, tenderness upon palpation to epigastric region, no guarding, no appreciable organomegaly Ext: ROM intact. No gross muscle atrophy, no edema, no contractures Neuro: Speech clear, face symmetrical and CN II-XII grossly intact with no noted focal neuro deficits Psych: Alert and oriented to person, place, time, and situation. Appropriate and pleasant affect. Assessment and Plan of Care: Sepsis on arrival Pyrexia while undergoing chemotherapy Lactic acidosis Hyperbilirubinemia Breast cancer undergoing chemotherapy -CT revealing mild uncomplicated sigmoid diverticulitis, hepatic steatosis, and mild soft tissue edema. -Vancomycin discontinued and patient started on Zosyn 3.375 g every 8 hours. -Continue with aggressive IV fluid hydration for hypotension with blood pressure 90s systolic. -Repeat lactic acid monitor for resolution of lactic acidosis. -Discussed case with solid waste technician, if blood pressures do not improve or lactic acid does not improve patient may require transfer to ICU. -Follow-up on blood culture results. -Continue symptomatic care and pain management. Data and imaging reviewed: -Vital signs reviewed. Blood pressure 131/69, heart rate 85, respiratory rate 17, temp 98.8 F, and SpO2 100% on room air. She is currently afebrile but temperature high over the past 24 hours was 105.2 on arrival and later on 103.0. -Morning labs reviewed. CBC showing bicytopenia with hemoglobin of 11.1 and platelet count of 69. BMP showing non-anion gap metabolic acidosis with chloride of 118, bicarb of 15, and anion gap of 5 with mild prerenal azotemia with BUN of 20. Blood glucose was 164. Magnesium 2.1. Liver profile showing improvement with AST decreasing to 207 and alkaline phosphatase decreasing to 343. CODE STATUS: Full code DVT prophylaxis: Lovenox Anticipated discharge date: Pending clinical course Anticipated discharge place: Home Patient was seen independently by Nurse Practitioner. This document was prepared using [employer] dictation software. Please allow for errors in supply person while rare they do occur. Javad Mccray FIELD LABORATORY OPERATOR rendered care for this patient independently, reviewed the findings and plan as documented in the note above and agree with plan. I did not physically speak with or examine the patient on this date. Objective - Vital Signs Vital signs: Vital Signs Temp 97.6 F 09/10/24 02:00 Pulse 71 09/10/24 02:00 Resp 16 09/10/24 02:00 BP 93/54 09/10/24 02:10 Pulse Ox 98 09/10/24 02:00 FiO2 Intake & Output 09/09/24 09/10/24 09/10/24 18:59 06:59 18:59 Weight 71.214 kg 71.214 kg Other: # Voids 3 - Labs CBC & Chem 7: 09/13/24 04:31 09/13/24 04:31 Labs: Abnormal Lab Results - Last 24 Hours (Table) 09/09/24 09/09/24 09/09/24 Range/Units 11:33 11:33 11:33 Plt Count 99 L (150-450) k/uL Lymphocytes # 0.2 L (1.0-4.8) k/uL PT 14.3 H (10.0-12.5) sec INR 1.4 H (<1.2) Sodium (137-145) mmol/L Carbon Dioxide (22-30) mmol/L BUN (7-17) mg/dL Creatinine (0.52-1.04) mg/dL Glucose (74-99) mg/dL Plasma Lactic Acid Agustin (0.7-2.0) mmol/L Calcium (8.4-10.2) mg/dL AST (14-36) U/L ALT (4-34) U/L Total Protein (6.3-8.2) g/dL Albumin (3.5-5.0) g/dL Procalcitonin (0.02-0.50) ng/mL Urine Appearance Cloudy H (Clear) Urine Protein 2+ H (Negative) Urine Blood Moderate H (Negative) Ur Leukocyte Esterase Trace H (Negative) Urine WBC 9 H (0-5) /hpf Urine Bacteria Occasional H (None) /hpf Urine Mucus Rare H (None) /hpf 09/09/24 09/09/24 09/09/24 Range/Units 11:33 11:33 11:33 Plt Count (150-450) k/uL Lymphocytes # (1.0-4.8) k/uL PT (10.0-12.5) sec INR (<1.2) Sodium 135 L (137-145) mmol/L Carbon Dioxide 19 L (22-30) mmol/L BUN 21 H (7-17) mg/dL Creatinine 1.07 H (0.52-1.04) mg/dL Glucose 114 H (74-99) mg/dL Plasma Lactic Acid Agustin 4.5 H* (0.7-2.0) mmol/L Calcium 7.7 L (8.4-10.2) mg/dL AST 431 H (14-36) U/L ALT 434 H (4-34) U/L Total Protein 5.5 L (6.3-8.2) g/dL Albumin 3.1 L (3.5-5.0) g/dL Procalcitonin 11.70 H (0.02-0.50) ng/mL Urine Appearance (Clear) Urine Protein (Negative) Urine Blood (Negative) Ur Leukocyte Esterase (Negative) Urine WBC (0-5) /hpf Urine Bacteria (None) /hpf Urine Mucus (None) /hpf
--- NOTE | 2024-09-13 14:14 | P.PN ---
Subjective Progress Note Date: 09/13/24 Principal diagnosis: Reason for follow-up is fever/diverticulitis Patient is a 64-year-old female with a past medical history significant for breast cancer diagnosed April 2024 and has been on chemotherapy also with a history of hypertension reflux patient presenting to the hospital for evaluation of possible drug reaction, patient did have a high-grade fever on admission subsequent workup including a CT abdominal pelvis suspicious for sigmoid diverticulitis. On today's evaluation that is 09/13/2024, Patient is afebrile this morning patient denies having any chest pain shortness of breath or cough, the patient is currently on room air, patient denies any nausea vomiting abdominal pain has improved no diarrhea. Patient white count is 5.43, creatinine 0.73 blood culture negative Objective - Vital Signs Vital signs: Vital Signs Temp 99.1 F 09/13/24 13:11 Pulse 85 09/13/24 13:11 Resp 17 09/13/24 13:11 BP 169/78 09/13/24 13:11 Pulse Ox 96 09/13/24 13:11 FiO2 Intake & Output 09/12/24 09/13/24 09/13/24 18:59 06:59 18:59 Intake Total 350 120 Balance 350 120 Intake: Oral 350 120 Other: Voiding Method Toilet # Voids 1 # Bowel Movements 1 - Exam GENERAL DESCRIPTION: An elderly female lying in bed in no distress RESPIRATORY SYSTEM: Unlabored breathing , decreased breath sounds at bases HEART: S1 S2 regular rate and rhythm , ABDOMEN: Soft , no tenderness EXTREMITIES: No edema feet - Labs CBC & Chem 7: 09/13/24 04:31 09/13/24 04:31 Labs: Abnormal Lab Results - Last 24 Hours (Table) 09/13/24 09/13/24 Range/Units 04:31 04:31 RBC 3.38 L (4.10-5.20) X 10*6/uL Hgb 9.6 L (12.0-15.0) g/dL Hct 29.3 L (37.2-46.3) % RDW 15.2 H (11.5-14.5) % Plt Count 61 L (140-440) X 10*3/uL Immature Gran # 0.05 H (0.00-0.04) X 10*3/uL Monocytes # 0.14 L (0.20-1.00) X 10*3/uL Eosinophils # 0.02 L (0.04-0.35) X 10*3/uL Immature Plt Fraction 13.0 H (1.1-6.1) % Chloride 111 H (98-107) mmol/L BUN 19 H (7-17) mg/dL Calcium 8.2 L (8.4-10.2) mg/dL AST 105 H (14-36) U/L ALT 241 H (4-34) U/L Total Protein 5.0 L (6.3-8.2) g/dL Albumin 2.8 L (3.5-5.0) g/dL Microbiology - Last 24 Hours (Table) 09/09/24 17:35 Blood Culture - Preliminary Blood 09/09/24 11:33 Blood Culture - Preliminary Blood Assessment and Plan (1) Acute diverticulitis Current Visit: Yes Status: Acute Priority: High Code(s): K57.92 - DVTRCLI OF INTEST, PART UNSP, W/O PERF OR ABSCESS W/O BLEED SNOMED Code(s): 884190855 Plan: 1patient presented hospital with fever and this patient apparently seem to have a similar symptom when getting infusion of her chemotherapy with a question of possible drug reaction as the patient did not have any elevated white count on presentation to the hospital and no significant tachycardia was noticed with a fever of 105 F however the patient did have abnormality on the CT with uncomp licated diverticulitis and may have become contributing to some of her symptomatology 2-patient did have resolution of her fever white count has normalized, 3patient is being treated with Zosyn 3.375 g 8-hour will transition to oral Ceftin and Flagyl x 10 days on discharge Dictation was produced using [employer] dictation software. please excuse any grammatical, word or spelling errors. Time with Patient: Less than 30
[2024-09-14 07:34] VITALS: BP 169/77; RESP 18; TEMP 98.5
[2024-09-14 08:17] VITALS: PULSE 76
--- NOTE | 2024-09-14 10:31 | P.DS ---
Providers Date of admission: 09/09/24 15:34 Expected date of discharge: 09/14/24 Attending physician: Alirio Hagan MD Consults: 09/09/24 16:13 Consult Physician Urgent Consulting Provider: Duran Liao Consult Reason/Comments: breast cancer Do you want consulting provider notified?: Yes Consult Physician Urgent Consulting Provider: Brandon Tan Consult Reason/Comments: Fever, chemo Do you want consulting provider notified?: Yes Primary care physician[facility] Course: Discharge Diagnosis: Sigmoid diverticulitis.Patient was started on broad-spectrum antibiotics secondary to sepsis on arrival. She was admitted under our services with consultation to infectious disease and oncology. CT revealing mild uncomplicated sigmoid diverticulitis, hepatic steatosis, and mild soft tissue edema. Aggressive IV fluid hydration resulting in resolution of lactic acidosis. Transaminitis slowly improving. Blood cultures showing no growth to date. Patient received IV fluid hydration antibiotics and has now remained afebrile x 72 hours. She reports improvement of previous reported abdominal pain and tolerating regular diet. Patient medically optimized for discharge at this time and has been cleared by infectious disease to be discharged home on Ceftin 500 mg twice daily x 10 days and Flagyl 500 mg 3 times daily x 10 days. Patient to hold off of chemotherapy this week and to resume next week per recommendations of oncology. Patient medically stable at this time and to follow-up outpatient with PCP in 1 to 2 days and oncologist as scheduled. Sepsis on arrival secondary to above Lactic acidosis Pyrexia leukocytosis while undergoing chemotherapy Bicytopenia, chemotherapy induced Transaminitis with hepatic steatosis, elevated liver enzymes improving Breast cancer undergoing chemotherapy Hospital Course: Patient is a very pleasant 64-year-old female with a past medical history of hypertension and breast cancer currently undergoing chemotherapy. She reports receiving her first dose of second round of chemotherapy yesterday for treatment of her triple negative breast cancer at [facility]. Patient reports that she had a reaction to her chemotherapy yesterday and received a dose of epinephrine, Benadryl and Solu-Medrol and was discharged back home. Patient reports she woke up feeling overall ill with chills and generalized achiness and mild epigastric pain. She noted herself to be febrile so she called her oncologist who directed her to go to the nearest emergency department for evaluation. Patient denies having any known ill contacts or any other complaints at this time. She denies having headache, lightheadedness, dizziness, chest pain, palpitations, shortness of breath, cough or congestion, nausea, vomiting, or experiencing any numbness/tingling/weakness/swelling in her extremities. Patient does report mild epigastric discomfort and decreased appetite. Upon arrival to our facility, patient underwent evaluation in the emergency department. Vital signs upon arrival show blood pressure 119/55, heart rate 95, respiratory rate 20, temp 105.2 F, and SpO2 of 97% on room air. Chest x-ray was completed showing borderline cardiomegaly and interstitial prominence with pulmonary vascular congestion versus bronchitis or atypical pneumonia. Labs completed and reviewed. CBC unremarkable with exception of thrombocytopenia with platelet count of 99. Coagulation profile showing elevated PT of 14.3 and INR of 1.4. BMP showing sodium 135, potassium 3.8, chloride 106, bicarb 19, and anion gap of 10. Renal function slightly elevated with BUN of 21, creatinine 1.07, GFR 55. Blood glucose 114. Lactic acid 4.5. Liver profile showing elevated AST of 431 and ALT of 434. Urinalysis negative for infection. Influenza A, influenza B, RSV, and COVID PCR negative. Liver ultrasound showing slightly hypoechoic appearance of the liver may be on a technical basis but also seen with hepatitis, no gallstones or biliary ductal dilation. blood cultures were obtained both peripherally and from patient's Chemo-Port that was placed approximately 6 weeks ago. Patient was started on broad-spectrum antibiotics and admitted under our services with consultation to infectious disease and oncology. CT revealing mild uncomplicated sigmoid diverticulitis, hepatic steatosis, and mild soft tissue edema. Aggressive IV fluid hydration resulting in resolution of lactic acidosis. Transaminitis slowly improving. Blood cultures showing no growth to date. Patient received IV fluid hydration antibiotics and has remained afebrile x 72 hours. She reports improvement of previous reported abdominal pain and tolerating regular diet. Patient medically optimized for discharge at this time and has been cleared by infectious disease to be discharged home on Ceftin 500 mg twice daily x 10 days and Flagyl 500 mg 3 times daily x 10 days. Patient to hold off of chemotherapy this week and to resume next week per recommendations of oncology. Patient medically stable at this time and to follow-up outpatient with PCP in 1 to 2 days and oncologist as scheduled. Physical exam: Vital signs reviewed and stable. General: Nontoxic, no distress and appears stated age. Derm: Skin warm and dry, normal coloration for ethnicity. Head: Atraumatic, normocephalic and symmetric. Eyes: EOM's intact, no lid lag, and anicteric sclera Mouth: no lip lesions, mucus membranes moist Cardiovascular: regular rate and rhythm with normal S1S2, no murmur, positive posterior tibial pulses bilaterally, and cap refill < 2 seconds. Lungs: Respirations even, regular, and unlabored on room air. Lungs CTA bilaterally, no rhonchi, no rales, no wheezing, and no accessory muscle usage. Abdominal: soft, tenderness upon palpation to epigastric region, no guarding, no appreciable organomegaly Ext: ROM intact. No gross muscle atrophy, no edema, no contractures Neuro: Speech clear, face symmetrical and CN II-XII grossly intact with no noted focal neuro deficits Psych: Alert and oriented to person, place, time, and situation. Appropriate and pleasant affect. A total of 38 minutes of time were spent preparing this complex discharge summary. Pt was discharged on 09/14/2024 at 9:58 AM. Patient was seen independently by Nurse Practitioner. This document was prepared using [employer] dictation software. Please allow for errors in air turning machine feeder while rare they do occur. Javad Mccray NP rendered care for this patient independently, reviewed the f indings and plan as documented in the note above. I did not physically speak with or examine the patient on this date. Patient Condition at Discharge: Stable Plan - Discharge Summary Discharge Rx Participant: No New Discharge Prescriptions: New cefuroxime axetiL [Ceftin] 500 mg PO BID 10 Days #20 tab metroNIDAZOLE [Flagyl] 500 mg PO TID 10 Days #30 tab Continue Cetirizine HCl [Zyrtec] 10 mg PO DAILY Prochlorperazine [Compazine] 10 mg PO Q6H PRN PRN Reason: breakthrough nausea/vomiting Ondansetron Odt [Zofran ODT] 8 mg PO Q8HR PRN PRN Reason: breakthrough nausea/vomiting OLANZapine [ZyPREXA] 5 mg PO DIRECTED PRN PRN Reason: Nausea dexAMETHasone [Decadron] 8 mg PO DIRECTED Losartan [Cozaar] 50 mg PO DAILY Lidocaine-Prilocaine Cream [Emla Cream 2.5%/2.5%] 1 applic TOPICAL DAILY PRN PRN Reason: mediport access Discharge Medication List Cetirizine HCl [Zyrtec] 10 mg PO DAILY 09/09/24 [History] Lidocaine-Prilocaine Cream [Emla Cream 2.5%/2.5%] 1 applic TOPICAL DAILY PRN 09/09/24 [History] Losartan [Cozaar] 50 mg PO DAILY 09/09/24 [History] OLANZapine [ZyPREXA] 5 mg PO DIRECTED PRN 09/09/24 [History] Ondansetron Odt [Zofran ODT] 8 mg PO Q8HR PRN 09/09/24 [History] Prochlorperazine [Compazine] 10 mg PO Q6H PRN 09/09/24 [History] dexAMETHasone [Decadron] 8 mg PO DIRECTED 09/09/24 [History] cefuroxime axetiL [Ceftin] 500 mg PO BID 10 Days #20 tab 09/14/24 [Rx] metroNIDAZOLE [Flagyl] 500 mg PO TID 10 Days #30 tab 09/14/24 [Rx] Follow up Appointment(s)/Referral(s): Carlyle Cao DO [Primary Care Provider] - 09/15/24 9:20 am Patient Instructions/Handouts: Cefuroxime (By mouth), Metronidazole (By mouth), Diverticulitis (DC), Diverticulitis Diet (DC) Activity/Diet/Wound Care/Special Instructions: Activity: As tolerated. Take breaks as needed. Diet: Diverticulitis diet, guidelines attached. Special Instructions: Take all of your medications as directed and remember to keep all of your doctor's appointments and follow-up as needed. As discussed with you by the oncologist, it is recommended resuming chemotherapy next week. Also as we discussed, it is recommended that you take the probiotic that you get from [facility] for the next two weeks. Wishing you and your family a truly blessed and wonderful holiday season and a Happy healthy New Year. Thank you for allowing us to participate in your care, it was truly a pleasure having you for our patient!!! Discharge Disposition: HOME SELF-CARE
--- NOTE | 2024-09-14 12:35 | P.PN ---
Subjective Progress Note Date: 09/14/24 Principal diagnosis: Reason for follow-up is fever/diverticulitis Patient is a 64-year-old female with a past medical history significant for breast cancer diagnosed April 2024 and has been on chemotherapy also with a history of hypertension reflux patient presenting to the hospital for evaluation of possible drug reaction, patient did have a high-grade fever on admission subsequent workup including a CT abdominal pelvis suspicious for sigmoid diverticulitis. On today's evaluation that is 09/14/2024,the patient denies any fever or any chills, patient is breathing comfortably on room air, the patient denies chest pain shortness of breath and no significant cough, patient denies abdominal pain, no nausea vomiting or diarrhea. Mention feeling better. Patient white count normal at 5.43 as of yesterday culture has been negative Objective - Vital Signs Vital signs: Vital Signs Temp 98.5 F 09/14/24 07:20 Pulse 76 09/14/24 08:16 Resp 18 09/14/24 07:20 BP 169/77 09/14/24 07:20 Pulse Ox 97 09/14/24 07:20 FiO2 Intake & Output 09/13/24 09/14/24 09/14/24 18:59 06:59 18:59 Intake Total 1300 Balance 1300 Intake: Intake, IV Titration 100 Amount Piperacillin-Tazobactam 3 100 .375 gm In Sodium Chloride 0.9% 100 ml @ 25 mls/hr IVPB Q8H [facility] Rx#: [id number] Oral 1200 Other: Voiding Method Toilet # Voids 2 1 - Exam GENERAL DESCRIPTION: An elderly female lying in bed in no distress RESPIRATORY SYSTEM: Unlabored breathing , decreased breath sounds at bases HEART: S1 S2 regular rate and rhythm , ABDOMEN: Soft , no tenderness EXTREMITIES: No edema feet - Labs CBC & Chem 7: 09/13/24 04:31 09/13/24 04:31 Assessment and Plan (1) Acute diverticulitis Status: Acute Priority: High Code(s): K57.92 - DVTRCLI OF INTEST, PART UNSP, W/O PERF OR ABSCESS W/O BLEED SNOMED Code(s): 562914025 Plan: 1patient presented hospital with fever and this patient apparently seem to have a similar symptom when getting infusion of her chemotherapy with a question of possible drug reaction as the patient did not have any elevated white count on presentation to the hospital and no significant tachycardia was noticed with a fever of 105 F however the patient did have abnormality on the CT with uncomplicated diverticulitis and may have become contributing to some of her symptomatology 2-patient did have resolution of her fever white count has normalized, overall improvement on Zosyn he will finish therapy with Ceftin and Flagyl x 10 days on discharge and close outpatient follow-up Dictation was produced using [employer] dictation software. please excuse any grammatical, word or spelling errors. Time with Patient: Less than 30
== END 2024-09-14 11:59 | disposition home or self-care (01) | DRG 872 ==
LOC: EC 10:43 → 5NMEDONC 15:34 → OBSVTOIN 15:34 → 5NMEDONC 20:54
PROVIDERS: ADMIT Family Medicine; ATTEND Family Medicine
DX: A41.9 Sepsis, unspecified organism (principal); E87.20 Acidosis, unspecified; K57.32 Diverticulitis of large intestine without perforation or abscess without bleeding; C50.912 Malignant neoplasm of unspecified site of left female breast; D69.6 Thrombocytopenia, unspecified; R65.20 Severe sepsis without septic shock; K76.0 Fatty (change of) liver, not elsewhere classified; I10 Essential (primary) hypertension; E80.6 Other disorders of bilirubin metabolism; D75.89 Other specified diseases of blood and blood-forming organs; T45.1X5A Adverse effect of antineoplastic and immunosuppressive drugs, initial encounter; K21.9 Gastro-esophageal reflux disease without esophagitis; E87.6 Hypokalemia; E87.8 Other disorders of electrolyte and fluid balance, not elsewhere classified; R79.1 Abnormal coagulation profile; Z87.891 Personal history of nicotine dependence; Z79.899 Other long term (current) drug therapy; Z17.421 Hormone receptor negative with human epidermal growth factor receptor 2 negative status
CPT/HCPCS: 36415; 71045; 71046; 74177; 76705; 80053; 80074; 81001; 83605; 83735; 84145; 85025; 85027; 85610; 85730; 86140; 87040; 87324; 87636; 94640; 94664; 96361; 96365; 96366; 96367; 96375; 99285

== ENCOUNTER 2024-09-22 18:35 | Inpatient (IN) | payer MEDICARE ==
[2024-09-22] MEDS: LIDOCAINE-PRILOCAINE 2.5-2.5% CREAM 5 GM TUBE TOPICAL STA (20:02)
[2024-09-22] MEDS: ACETAMINOPHEN TAB 500 MG TAB PO STA (20:14)
--- NOTE | 2024-09-22 20:14 | XR ---
EXAMINATION TYPE: XR chest 2V DATE OF EXAM: 09/22/2024 7:50 PM COMPARISON: Chest radiographs from 09/11/2024 CLINICAL INDICATION: Female, 64 years old with history of fever; [facility] TECHNIQUE: XR chest 2V Frontal and lateral views of the chest. FINDINGS: Lungs/Pleura: There is no evidence of pleural effusion, focal consolidation, or pneumothorax. Pulmonary vascularity: Unremarkable. Heart/mediastinum: Cardiomediastinal silhouette is unremarkable. Musculoskeletal: No acute osseous pathology. Other findings: None Lines/Tubes: [id number] projecting over the right hemithorax with distal tip projecting over the superior vena cava. IMPRESSION: No acute cardiopulmonary disease/process. [facility], , 09/22/2024 8:12 PM
[2024-09-22] MEDS: SODIUM CHLORIDE 0.9% 1,000 ML IV STA ×2 (21:13→21:56)
[2024-09-22 21:29] LABS: ALT 223 U/L (4-34); AST 342 U/L (14-36); African American GFR (CKD) >90 (>60 ml/min/1.73 sqM); Albumin 3.7 g/dL (3.5-5.0); Alkaline Phosphatase 226 U/L (38-126); Anion Gap 9 mmol/L; Blood Urea Nitrogen 13 mg/dL (7-17); Calcium 8.8 mg/dL (8.4-10.2); Carbon Dioxide 20 mmol/L (22-30); Chloride 103 mmol/L (98-107); Glucose 146 mg/dL (74-99); Non-African American GFR(CKD) >90 (>60 ml/min/1.73 sqM); Potassium 3.8 mmol/L (3.5-5.1); Sodium 132 mmol/L (137-145); Total Bilirubin 1.1 mg/dL (0.2-1.3)
[2024-09-22 21:43] LABS: Basophils % (A) 0 %; Eosinophils % (A) 1 %; HCT 34.4 % (34.0-46.0); HGB 11.5 gm/dL (11.4-16.0); Lymphocytes # (A) 0.1 k/uL (1.0-4.8); Lymphocytes % (A) 1 %; MCH 29.4 pg (25.0-35.0); MCHC 33.6 g/dL (31.0-37.0); MCV 87.5 fL (80.0-100.0); Mean Platelet Volume 8.2; Monocytes # (A) 0.1 k/uL (0-1.0); Monocytes % (A) 1 %; Neutrophils # (A) 6.2 k/uL (1.3-7.7); Neutrophils % (A) 96 %; RBC 3.93 m/uL (3.80-5.40); RDW 14.2 % (11.5-15.5); WBC 6.4 k/uL (3.8-10.6)
[2024-09-22] MEDS: ONDANSETRON 4 MG/2 ML VIAL IVP STA (21:56)
[2024-09-22 22:06] LABS: Platelet Count 132 k/uL (150-450)
--- NOTE | 2024-09-22 23:34 | ED ---
Fever HPI - General Chief Complaint: Fever Stated Complaint: Fever Time Seen by Provider: 09/22/24 18:40 Source: patient, family Mode of arrival: ambulatory Limitations: no limitations - History of Present Illness Initial Comments: 64-year-old female with past medical history of breast cancer on chemotherapy who presents emergency department with a fever. Patient received her infusion today. Shortly afterwards she developed a high fever. This did happen to the patient during her last chemoinfusion. She was hospitalized and they found that she had diverticulitis. Patient is currently on antibiotics and states that she should finish them up on Thursday. The patient was having some chills and shaking at home. This is when they realized that she had a fever and brought her into the emergency department. Patient is concerned that she is not tolerating her chemo. She does follow with an oncologist out of [facility]. Patient denies having any symptoms of infection to include cough, shortness of breath, abdominal pain. No changes in her bowel or bladder habits. She denies any rashes. No other alleviating, precipitating or modifying factors - Related Data Home Medications Medication Instructions Recorded Confirmed Cetirizine HCl [Zyrtec] 10 mg PO DAILY 09/09/24 09/23/24 Lidocaine-Prilocaine Cream [Emla 1 applic TOPICAL DAILY PRN 09/09/24 09/23/24 Cream 2.5%/2.5%] Losartan [Cozaar] 50 mg PO DAILY 09/09/24 09/23/24 OLANZapine [ZyPREXA] 5 mg PO DIRECTED PRN 09/09/24 09/23/24 Ondansetron Odt [Zofran ODT] 8 mg PO Q8HR PRN 09/09/24 09/23/24 Prochlorperazine [Compazine] 10 mg PO Q6H PRN 09/09/24 09/23/24 dexAMETHasone [Decadron] 8 mg PO DIRECTED 09/09/24 09/23/24 Famotidine [Pepcid] 40 mg PO HS 09/23/24 09/23/24 Allergies Allergy/AdvReac Type Severity Reaction Status Date / Time No Known Allergies Allergy Verified 09/23/24 08:45 Review of Systems ROS Statement: Those systems with pertinent positive or pertinent negative responses have been documented in the HPI. ROS Other: All systems not noted in ROS Statement are negative. Past Medical History Past Medical History: Cancer, GERD/Reflux, Hypertension Additional Past Medical History / Comment(s): breast ca- 04/27 History of Any Multi-Drug Resistant Organisms: None Reported Past Surgical History: Section Past Psychological History: No Psychological Hx Reported Smoking Status: Former smoker Past Alcohol Use History: None Reported Past Drug Use History: None Reported General Exam Limitations: no limitations General appearance: alert, in no apparent distress Head exam: Present: atraumatic, normocephalic, normal inspection Eye exam: Present: normal appearance, PERRL, EOMI. Absent: scleral icterus, conjunctival injection, periorbital swelling ENT exam: Present: normal exam, mucous membranes moist Neck exam: Present: normal inspection. Absent: tenderness, meningismus, lymphadenopathy Respiratory exam: Present: normal lung sounds bilaterally. Absent: respiratory distress, wheezes, rales, rhonchi, stridor Cardiovascular Exam: Present: normal rhythm, tachycardia, normal heart sounds. Absent: systolic murmur, diastolic murmur, rubs, gallop, clicks GI/Abdominal exam: Present: soft, normal bowel sounds. Absent: distended, tenderness, guarding, rebound, rigid Extremities exam: Present: normal inspection, full ROM, normal capillary refill. Absent: tenderness, pedal edema, joint swelling, calf tenderness Back exam: Present: normal inspection Neurological exam: Present: alert, oriented X3, CN II-XII intact Psychiatric exam: Present: normal affect, normal mood Skin exam: Present: warm, dry, intact, normal color. Absent: rash Course Vital Signs 09/22/24 09/22/24 09/23/24 18:37 21:55 00:35 Temperature 102.8 F H 100.2 F H Pulse Rate 122 H 93 88 Pulse Rate [ Pulse Oximetery ] Respiratory 20 18 16 Rate Blood Pressure 139/66 119/56 128/61 Blood Pressure [Left Arm] O2 Sat by Pulse 97 95 96 Oximetry 09/23/24 09/23/24 09/23/24 01:27 06:06 07:37 Temperature 99.7 F H 103 F H Pulse Rate 76 86 Pulse Rate [ Pulse Oximetery ] Respiratory 18 20 Rate Blood Pressure 149/82 118/68 Blood Pressure [Left Arm] O2 Sat by Pulse 100 98 Oximetry 09/23/24 07:39 Temperature 99.5 F Pulse Rate Pulse Rate [ 90 Pulse Oximetery ] Respiratory 16 Rate Blood Pressure Blood Pressure 107/58 [Left Arm] O2 Sat by Pulse 96 Oximetry Medical Decision Making - Medical Decision Making Was pt. sent in by a medical professional or institution (, PA, SOFTWARE SALES MANAGER, urgent care, hospital, or long term...) When possible be specific @ -No Did you speak to anyone other than the patient for history (EMS, parent, family, police, friend...)? What history was obtained from this source @ -Spoke with for history Did you review nursing and triage notes (agree or disagree)? Why? @ -I reviewed and agree with nursing and triage notes Were old charts reviewed (outside hosp., previous admission, EMS record, old EKG, old radiological studies, urgent care reports/EKG's, long term records)? Report findings @ -Reviewed the patient's chart from September 09 where she was hospitalized for similar complaint Differential Diagnosis (chest pain, altered mental status, abdominal pain women, abdominal pain men, vaginal bleeding, weakness, fever, dyspnea, syncope, headach e, dizziness, GI bleed, back pain, seizure, CVA, palpatations, mental health, musculoskeletal)? @ -Differential Fever: Pneumonia, viral URI, endocarditis, myocarditis, pericarditis, otitis, sinusiti s, peritonsillar Abscess, retropharyngeal Abscess, epiglottitis, peritonitis, appendicitis, Parris cystitis, diverticulitis, hepatitis, colitis, UTI, PID, TOA, pyelonephritis, prostatitis, epididymitis, meningitis, encephalitis, pulmonary embolism, CVA, thyroid storm, pancreatitis, adrenal crisis, cavernous sinus thrombosis, this is not meant to be an all-inclusive list. EKG interpreted by me (3pts min.). @ -Not done X-rays interpreted by me (1pt min.). @ -Yes which demonstrates no acute process CT interpreted by me (1pt min.). @ -None done U/S interpreted by me (1pt. min.). @ -None done What testing was considered but not performed or refused? (CT, X-rays, U/S, labs)? Why? @ -None What meds were considered but not given or refused? Why? @ -None Did you discuss the management of the patient with other professionals (professionals i.e. , PA, SOFTWARE SALES MANAGER, lab, RT, psych nurse, social service coordinator, hot stone setter, teacher, executive officer, briefcase sewer)? Give summary @ -Spoke with Dr. Leone who will admit the patient Was smoking cessation discussed for >3mins.? @ -No Was critical care preformed (if so, how long)? @ -No Were there social determinants of health that impacted care today? How? (Homel essness, low income, unemployed, alcoholism, drug addiction, transportation, low edu. Level, literacy, decrease access to med. care, care home, rehab)? @ -No Was there de-escalation of care discussed even if they declined (Discuss DNR or withdrawal of care, Hospice)? DNR status @ -No What co-morbidities impacted this encounter? (DM, HTN, Smoking, COPD, CAD, Cancer, CVA, ARF, Chemo, Hep., AIDS, mental health diagnosis, sleep apnea, morbid obesity)? @ -Breast cancer on chemotherapy Was patient admitted / discharged? Hospital course, mention meds given and route, prescriptions, significant lab abnormalities, going to OR and other pertinent info. @ -Upon arrival patient seen and evaluated in bed 15. Thorough history and physical exam was performed. Patient does present with a fever on chemotherapy. Her port was accessed. Laboratory studies are conducted including blood cultures. Patient was given antipyretics. Chest x-ray was performed. There is concern that the patient symptoms are due to chemo side effect and not necessarily infection however patient will be continued on antibiotics and admitted. Oncology will be consulted. Spoke with Dr. Leone for the admission. Patient was agreeable to admission Undiagnosed new problem with uncertain prognosis? @ -No Drug Therapy requiring intensive monitoring for toxicity (Heparin, Nitro, Insulin, Cardizem)? @ -No Were any procedures done? @ -No Diagnosis/symptom? @ -Acute pyrexia, breast cancer on chemotherapy Acute, or Chronic, or Acute on Chronic? @ -Acute Uncomplicated (without systemic symptoms) or Complicated (systemic symptoms)? @ -Complicated Side effects of treatment? @ -No Exacerbation, Progression, or Severe Exacerbation? @ -No Poses a threat to life or bodily function? How? (Chest pain, USA, MT, pneumonia, PE, COPD, DKA, ARF, appy, cholecystitis, CVA, Diverticulitis, Homicidal, Suicidal, threat to staff... and all critical care pts) @ -No - Lab Data Result diagrams: 09/24/24 04:31 09/24/24 04:31 Lab Results 09/22/24 09/22/24 09/22/24 Range/Units 19:11 19:11 19:11 WBC 6.4 (3.8-10.6) k/uL RBC 3.93 (3.80-5.40) m/uL Hgb 11.5 (11.4-16.0) gm/dL Hct 34.4 (34.0-46.0) % MCV 87.5 (80.0-100.0) fL MCH 29.4 (25.0-35.0) pg MCHC 33.6 (31.0-37.0) g/dL RDW 14.2 (11.5-15.5) % Plt Count 132 L D (150-450) k/uL MPV 8.2 Neutrophils % 96 % Lymphocytes % 1 % Monocytes % 1 % Eosinophils % 1 % Basophils % 0 % Neutrophils # 6.2 (1.3-7.7) k/uL Lymphocytes # 0.1 L (1.0-4.8) k/uL Monocytes # 0.1 (0-1.0) k/uL Eosinophils # 0.0 (0-0.7) k/uL Basophils # 0.0 (0-0.2) k/uL Sodium 132 L (137-145) mmol/L Potassium 3.8 (3.5-5.1) mmol/L Chloride 103 (98-107) mmol/L Carbon Dioxide 20 L (22-30) mmol/L Anion Gap 9 mmol/L BUN 13 (7-17) mg/dL Creatinine 0.63 (0.52-1.04) mg/dL Est GFR (CKD-EPI)AfAm >90 (>60 ml/min/1.73 sqM) Est GFR (CKD-EPI)NonAf >90 (>60 ml/min/1.73 sqM) Glucose 146 H (74-99) mg/dL Plasma Lactic Acid Agustin 2.6 H* (0.7-2.0) mmol/L Calcium 8.8 (8.4-10.2) mg/dL Total Bilirubin 1.1 (0.2-1.3) mg/dL AST 342 H (14-36) U/L ALT 223 H (4-34) U/L Alkaline Phosphatase 226 H (38-126) U/L Total Protein 6.0 L (6.3-8.2) g/dL Albumin 3.7 (3.5-5.0) g/dL Influenza Type A (PCR) (Not Detectd) Influenza Type B (PCR) (Not Detectd) RSV (PCR) (Not Detectd) SARS-CoV-2 (PCR) (Not Detectd) 09/22/24 Range/Units 19:17 WBC (3.8-10.6) k/uL RBC (3.80-5.40) m/uL Hgb (11.4-16.0) gm/dL Hct (34.0-46.0) % MCV (80.0-100.0) fL MCH (25.0-35.0) pg MCHC (31.0-37.0) g/dL RDW (11.5-15.5) % Plt Count (150-450) k/uL MPV Neutrophils % % Lymphocytes % % Monocytes % % Eosinophils % % Basophils % % Neutrophils # (1.3-7.7) k/uL Lymphocytes # (1.0-4.8) k/uL Monocytes # (0-1.0) k/uL Eosinophils # (0-0.7) k/uL Basophils # (0-0.2) k/uL Sodium (137-145) mmol/L Potassium (3.5-5.1) mmol/L Chloride (98-107) mmol/L Carbon Dioxide (22-30) mmol/L Anion Gap mmol/L BUN (7-17) mg/dL Creatinine (0.52-1.04) mg/dL Est GFR (CKD-EPI)AfAm (>60 ml/min/1.73 sqM) Est GFR (CKD-EPI)NonAf (>60 ml/min/1.73 sqM) Glucose (74-99) mg/dL Plasma Lactic Acid Agustin (0.7-2.0) mmol/L Calcium (8.4-10.2) mg/dL Total Bilirubin (0.2-1.3) mg/dL AST (14-36) U/L ALT (4-34) U/L Alkaline Phosphatase (38-126) U/L Total Protein (6.3-8.2) g/dL Albumin (3.5-5.0) g/dL Influenza Type A (PCR) Not Detected (Not Detectd) Influenza Type B (PCR) Not Detected (Not Detectd) RSV (PCR) Not Detected (Not Detectd) SARS-CoV-2 (PCR) Not Detected (Not Detectd) Disposition Clinical Impression: Chemotherapy adverse reaction, Fever Disposition: ADMITTED IP TO THIS [facility] Condition: Stable Is patient prescribed a controlled substance at d/c from ED?: No Time of Disposition: 23:45 Decision to Admit Reason: Admit from EC Decision Date: 09/22/24 Decision Time: 23:45
[2024-09-22] MEDS ORDERED: NALOXONE 0.4 MG/ML 1 ML VIAL IV PRN (23:45)
[2024-09-23] MEDS: PIPERACILLIN-TAZOBACTAM 3.375 GM in SODIUM CHLORIDE 0.9% 100 ML IVPB SCH (00:34)
[2024-09-23] MEDS: FAMOTIDINE 20 MG TAB PO STA (01:51)
[2024-09-23] MEDS: OLANZapine 5 MG TAB PO STA (01:51)
[2024-09-23] MEDS: SODIUM CHLORIDE 0.9% 1,000 ML IV SCH (01:53)
--- NOTE | 2024-09-23 04:52 | P.HPIM ---
History of Present Illness H&P Date: 09/23/24 Chief Complaint: Fever Patient is a 64-year-old female with past medical history of breast cancer currently undergoing chemotherapy, GERD, hypertension presented to the emergency department with a fever. Patient currently has triple negative breast cancer and is getting treatment at [facility]. Patient does follow an oncologist out of [facility]. Patient received her chemotherapy infusion yesterday morning. A few hours after receiving the treatment, patient developed a high fever along with body chills. Patient was recently diagnosed with triple negative breast cancer in April and has been getting chemotherapy since July. This is the third time since she started the chemo where she had to come to the hospital with fever and chills shortly after receiving the chemo. Of note, patient was just here about a week ago with similar complaints and was found to have a diverticulitis and was discharged with cefuroxime and Flagyl to go home with. Patient currently endorses fever, chills, nausea, tingling sensation in her fingertips. Denies vomiting, chest pain, shortness of breath, diarrhea, constipation, belly pain, dysuria, upper or lower extremity weakness. ED documentation reviewed. In the ED patient was treated with acetaminophen 1000 mg p.o. x 1, a bolus of normal saline, lidocaine cream topical x 1, Zofran 4 mg IV x 1, famotidine 40 mg p.o. x 1, olanzapine 5 mg p.o. x 1, and zosyn IV. Vitals on admission temperature of 99.7, pulse rate 88, respiratory rate 16, blood pressure 128/61, O2 sat of 96% on room air CXR shows no acute cardiopulmonary disease/process Labs on admission show white blood count of 6.4, hemoglobin 11.5, hematocrit 34.4, platelets 132, sodium 132, potassium 3.8, chloride 103, carbon dioxide 20, BUN 13, creatinine 0.63, glucose 146, lactic acid 2.6, AST 342, ALT 223, alkaline phosphatase 226 Review of systems: Pertinent positives and negatives as discussed in HPI, a complete review of systems was performed and all other systems are negative. PMH: Breast cancer currently undergoing chemotherapy, GERD, hypertension PSH: section FMH: Mother had a history of lung cancer. Brother had a history of brain cancer. Allergies: No known drug allergies Social history: Tobacco: Former smoker Alcohol: None reported Recreational drugs: None reported Travel: No recent travel history Sick contacts: No sick contacts Physical examination: Vital signs reviewed General: nontoxic, no distress, appears at stated age Derm: warm, dry, intact Head: atraumatic, normocephalic, symmetric Eyes: EOMI, anicteric sclera Mouth: no lip lesion, mucus membranes moist Cardiovascular: S1 S2 reg, no murmur Lungs: CTA bilateral, no rhonchi, no rales, no accessory muscle use Abdominal: soft, non-tender to palpation, nondistended, no signs of peritonitis Extremities: No cyanosis, clubbing, or pedal edema. Neuro: Alert, Oriented to time, person, place, Gross neurological examination did not reveal any focal deficits. Cranial nerves II to XII grossly intact. Intact bilateral upper and lower extremity sensation. Intact bilateral upper and lower extremity muscle strength 5 out of 5. Psych: well appearing, appropriate affect Assessment/Plan: Patient is a 64-year-old female with past medical history of breast cancer currently undergoing chemotherapy, GERD, hypertension presented to the emergency department with a fever. Patient will be admitted to inpatient medicine service. Active: #. Sepsis on arrival #. Pyrexia shortly after undergoing chemotherapy, likely reaction to chemotherapy Consult oncology Consult infectious disease Continue normal saline at 75 cc an hour Monitor morning CBC Continue with empiric Zosyn 3.375 g every 8 hours Blood cultures x 2 ordered by ED #. Elevated AST, ALT, and alkaline phosphatase AST 342, ALT 223, alkaline phosphatase [address] of abdomen pelvis obtained on 09/09/2024, patient was found to have mild uncomplicated sigmoid diverticulitis and findings suggestive of hepatic steatosis Continue with Zosyn 3.375 g every 8 hours Monitor morning CMP Patient denies any abdominal symptoms Order abdominal ultrasound #. Lactic acidosis Continue saline at 75 cc an hour Monitor lactic acid #. Thrombocytopenia, suspect due to chemotherapy Platelets 132 Monitor morning CBC #. Hyponatremia Sodium 132 Continue normal saline at 75 cc an hour Monitor morning CMP #. Hyperglycemia Glucose 146 Accu-Cheks every 6 hours Obtain hemoglobin a1c Chronic: #. Hypertension Resume home losartan 50 mg daily F: No restrictions E: As needed N: Regular diet A: Ambulatory DVT prophylaxis: Lovenox 40 mg subcu daily The patient is admitted with an anticipated more than 2 midnight stay for evaluation of pyrexia secondary to chemotherapy CODE STATUS: Full code Discussed with: Patient Anticipated discharge place: Home Past Medical History Past Medical History: Cancer, GERD/Reflux, Hypertension Additional Past Medical History / Comment(s): breast ca- 04/27 History of Any Multi-Drug Resistant Organisms: None Reported Past Surgical History: Section Past Psychological History: No Psychological Hx Reported Smoking Status: Former smoker Past Alcohol Use History: None Reported Past Drug Use History: None Reported Medications and Allergies Home Medications Medication Instructions Recorded Confirmed Type Cetirizine HCl [Zyrtec] 10 mg PO DAILY 09/09/24 09/09/24 History Lidocaine-Prilocaine Cream [Emla 1 applic TOPICAL DAILY PRN 09/09/24 09/09/24 History Cream 2.5%/2.5%] Losartan [Cozaar] 50 mg PO DAILY 09/09/24 09/09/24 History OLANZapine [ZyPREXA] 5 mg PO DIRECTED PRN 09/09/24 09/09/24 History Ondansetron Odt [Zofran ODT] 8 mg PO Q8HR PRN 09/09/24 09/09/24 History Prochlorperazine [Compazine] 10 mg PO Q6H PRN 09/09/24 09/09/24 History dexAMETHasone [Decadron] 8 mg PO DIRECTED 09/09/24 09/09/24 History cefuroxime axetiL [Ceftin] 500 mg PO BID 10 Days #20 tab 09/14/24 Rx metroNIDAZOLE [Flagyl] 500 mg PO TID 10 Days #30 tab 09/14/24 Rx Allergies Allergy/AdvReac Type Severity Reaction Status Date / Time No Known Allergies Allergy Verified 09/09/24 16:16 Physical Exam Vitals: Vital Signs Temp Pulse Resp BP Pulse Ox 09/23/24 01:27 99.7 F H 09/23/24 00:35 88 16 128/61 96 09/22/24 21:55 100.2 F H 93 18 119/56 95 09/22/24 18:37 102.8 F H 122 H 20 139/66 97 Intake and Output 09/22/24 09/22/24 09/23/24 14:59 22:59 06:59 Other: Weight 69.853 kg Results CBC & Chem 7: 09/22/24 19:11 09/22/24 19:11 Labs: Abnormal Lab Results - Last 24 Hours (Table) 09/22/24 09/22/24 09/22/24 Range/Units 19:11 19:11 19:11 Plt Count 132 L D (150-450) k/uL Lymphocytes # 0.1 L (1.0-4.8) k/uL Sodium 132 L (137-145) mmol/L Carbon Dioxide 20 L (22-30) mmol/L Glucose 146 H (74-99) mg/dL Plasma Lactic Acid Agustin 2.6 H* (0.7-2.0) mmol/L AST 342 H (14-36) U/L ALT 223 H (4-34) U/L Alkaline Phosphatase 226 H (38-126) U/L Total Protein 6.0 L (6.3-8.2) g/dL
[2024-09-23] MEDS: IBUPROFEN 400 MG TAB PO PRN (06:11)
[2024-09-23 07:03] LABS: Glucose,Whole Blood 119 mg/dL (70-110)
[2024-09-23 07:29] LABS: ALT 272 U/L (4-34); AST 364 U/L (14-36); African American GFR (CKD) >90 (>60 ml/min/1.73 sqM); Albumin 3.3 g/dL (3.5-5.0); Albumin/Globulin Ratio 1.5; Alkaline Phosphatase 202 U/L (38-126); Anion Gap 4 mmol/L; Blood Urea Nitrogen 12 mg/dL (7-17); Calcium 8.3 mg/dL (8.4-10.2); Carbon Dioxide 21 mmol/L (22-30); Chloride 106 mmol/L (98-107); Globulin 2.2 g/dL; Glucose 119 mg/dL (74-99); Non-African American GFR(CKD) >90 (>60 ml/min/1.73 sqM); Potassium 3.8 mmol/L (3.5-5.1); Sodium 131 mmol/L (137-145); Total Bilirubin 1.6 mg/dL (0.2-1.3); Total Protein 5.5 g/dL (6.3-8.2)
[2024-09-23] MEDS: LOSARTAN 50 MG TAB PO SCH (08:06)
[2024-09-23] MEDS: ENOXAPARIN 40 MG/0.4 ML SYRINGE SQ SCH (08:06)
[2024-09-23] MEDS: ONDANSETRON 4 MG/2 ML VIAL IVP PRN (08:14)
[2024-09-23 10:47] LABS: HCT 33.1 % (37.2-46.3); MCH 28.1 pg (27.0-32.0); MCHC 33.2 g/dL (32.0-37.0); MCV 84.7 FL (80.0-97.0); NRBC Per 100 WBC 0 X 10*3/uL (0.00-0.01); Platelet Count 125 X 10*3/uL (140-440); RBC 3.91 X 10*6/uL (4.10-5.20); RDW 14.3 % (11.5-14.5); WBC 7.41 X 10*3/uL (4.50-10.00)
[2024-09-23 11:18] LABS: Basophils # (A) 0.04 X 10*3/uL (0.00-0.10); Basophils % (A) 0.5 %; Eosinophils # (A) 0 X 10*3/uL (0.04-0.35); Eosinophils % (A) 0 %; Lymphocytes # (A) 0.12 X 10*3/uL (0.90-5.00); Lymphocytes % (A) 1.6 %; Monocytes % (A) 1.3 %; Neutrophils % (A) 95.9 %
--- NOTE | 2024-09-23 14:17 | US ---
EXAMINATION TYPE: US abdomen limited DATE OF EXAM: 09/23/2024 COMPARISON: CLINICAL INDICATION: Female, 64 years old with history of transaminitis; Abnormal labs TECHNIQUE: Grayscale and color Doppler imaging of the right upper quadrant was performed. FINDINGS: EXAM MEASUREMENTS: Liver Length: 16.7 cm Gallbladder Wall: 0.2 cm CBD: 0.6 cm Right Kidney: 9.7 x 4.6 x 4.6 cm Pancreas: Tail obscured by overlying bowel gas, echogenic in appearance Liver: wnl Gallbladder: No stones or wall thickening seen at time of scan Evidence for sonographic Anguiano's sign: neg CBD: wnl Right Kidney: No hydronephrosis or masses seen IMPRESSION: No significant abnormality appreciated. [facility], , 09/23/2024 2:15 PM
[2024-09-23 15:41] LABS: African American GFR (CKD) >90 (>60 ml/min/1.73 sqM); Anion Gap 3 mmol/L; Blood Urea Nitrogen 14 mg/dL (7-17); Calcium 7.7 mg/dL (8.4-10.2); Carbon Dioxide 19 mmol/L (22-30); Chloride 111 mmol/L (98-107); Glucose 134 mg/dL (74-99); Non-African American GFR(CKD) >90 (>60 ml/min/1.73 sqM); Sodium 133 mmol/L (137-145)
[2024-09-23 16:11] LABS: Potassium 4.6 mmol/L (3.5-5.1)
--- NOTE | 2024-09-23 16:19 | P.CONS ---
History of Present Illness - Reason for Consult Consult date: 09/23/24 Fever and chills, possible chemo reaction - History of Present Illness The patient is a 64-year-old white female, recently seen by our service in consult, on 09/10/2024. She has a recent diagnosis of triple negative left-sided breast cancer, as well as a suspicious area on the right. The patient's primary oncologist is Dr. Turcios, at [facility]. The patient is on neoadjuvant chemoimmunotherapy, with Keytruda/Taxol/carboplatin and is status post 2 cycles. The patient tolerated her first cycle well. With cycle 2 she developed a reaction during Taxol infusion, with upper chest pain and tightness, back pain, and shortness of breath. Her symptoms resolved with stopping the infusion, and epinephrine. After a delay of about 45 minutes, during which she also received IV Solu-Medrol, Taxol was resumed at a slow rate and she was able to complete it without any problems. She was feeling reasonably well when she went home Patient states that she woke up with complaints of feeling feverish, generalized aching, chills, and upper abdominal pain. Therefore came into the ER on 09/09/2024, and was admitted. Her infection workup was negative, and fever subsequently resolved within 2 to 3 days. It was felt that this was likely a febrile reaction to her treatment, separate from her hypersensitivity type reac tion to Taxol. The patient was then rechallenged with the chemotherapy, the day cycle #3, given only with carboplatin and Taxol with dose reduction. She did not have any issues while receiving the infusion, but a few hours later, at home again developed fever with shaking chills and somewhat generalized muscle and joint pains. Temperature at home was greater than 103. She came into the ER where her temperature was greater than 102. She was therefore admitted for further management. Labs showed mild anemia In the 11 range, mild thrombocytopenia in the 1 20-1 30 range, and normal WBC/ANC She denied any localizing symptom suggestive of infection Review of Systems Constitutional: Reports chills, Reports fever Eyes: denies blurred vision, denies pain Ears: deny: decreased hearing, ear discharge, earache, tinnitus Ears, nose, mouth and throat: Denies headache, Denies sore throat Cardiovascular: Denies chest pain, Denies shortness of breath Respiratory: Denies cough Gastrointestinal: Denies abdominal pain, Denies diarrhea, Denies nausea, Denies vomiting Genitourinary: Denies dysuria, Denies hematuria Menstruation: Reports postmenopausal Musculoskeletal: Reports as per HPI, Reports myalgias Integumentary: Denies pruritus, Denies rash Neurological: Reports weakness Psychiatric: Denies anxiety, Denies depression Endocrine: Reports fatigue Hematologic/Lymphatic: Reports as per HPI Past Medical History Past Medical History: Cancer, GERD/Reflux, Hypertension Additional Past Medical History / Comment(s): breast ca- 04/27 History of Any Multi-Drug Resistant Organisms: None Reported Past Surgical History: Section Past Anesthesia/Blood Transfusion Reactions: No Reported Reaction Past Psychological History: No Psychological Hx Reported Smoking Status: Former smoker Past Alcohol Use History: None Reported Past Drug Use History: None Reported Additional Drug Use History / Comment(s): quit smoking 2017 Medications and Allergies Home Medications Medication Instructions Recorded Confirmed Type Cetirizine HCl [Zyrtec] 10 mg PO DAILY 09/09/24 09/23/24 History Lidocaine-Prilocaine Cream [Emla 1 applic TOPICAL DAILY PRN 09/09/24 09/23/24 History Cream 2.5%/2.5%] Losartan [Cozaar] 50 mg PO DAILY 09/09/24 09/23/24 History OLANZapine [ZyPREXA] 5 mg PO DIRECTED PRN 09/09/24 09/23/24 History Ondansetron Odt [Zofran ODT] 8 mg PO Q8HR PRN 09/09/24 09/23/24 History Prochlorperazine [Compazine] 10 mg PO Q6H PRN 09/09/24 09/23/24 History dexAMETHasone [Decadron] 8 mg PO DIRECTED 09/09/24 09/23/24 History cefuroxime axetiL [Ceftin] 500 mg PO BID 10 Days #20 tab 09/14/24 09/23/24 Rx metroNIDAZOLE [Flagyl] 500 mg PO TID 10 Days #30 tab 09/14/24 09/23/24 Rx Famotidine [Pepcid] 40 mg PO HS 09/23/24 09/23/24 History Allergies Allergy/AdvReac Type Severity Reaction Status Date / Time No Known Allergies Allergy Verified 09/23/24 08:45 Physical Exam Vitals: Vital Signs Temp Pulse Pulse Resp BP BP Pulse Ox 09/23/24 13:12 98.2 F 75 16 98/61 96 09/23/24 07:39 99.5 F 90 16 107/58 96 09/23/24 07:37 86 20 118/68 98 09/23/24 06:06 103 F H 76 18 149/82 100 09/23/24 01:27 99.7 F H 09/23/24 00:35 88 16 128/61 96 09/22/24 21:55 100.2 F H 93 18 119/56 95 09/22/24 18:37 102.8 F H 122 H 20 139/66 97 Intake and Output 09/23/24 09/23/24 09/23/24 06:59 14:59 22:59 Other: Voiding Method Toilet Weight 69.853 kg - Constitutional General appearance: no acute distress - EENT Eyes: EOMI, PERRLA ENT: hearing grossly normal, normal oropharynx - Neck Neck: no lymphadenopathy - Respiratory Respiratory: bilateral: CTA - Cardiovascular Rhythm: regular Heart sounds: normal: S1, S2 - Gastrointestinal General gastrointestinal: normal bowel sounds, soft - Integumentary Integumentary: normal - Musculoskeletal Musculoskeletal: generalized weakness, strength equal bilaterally - Psychiatric Psychiatric: A&O x's 3, appropriate affect Results CBC & Chem 7: 09/23/24 06:50 09/23/24 14:48 Labs: Abnormal Lab Results - Last 24 Hours (Table) 09/22/24 09/22/24 09/22/24 Range/Units 19:11 19:11 19:11 RBC (4.10-5.20) X 10*6/uL Hgb (12.0-15.0) g/dL Hct (37.2-46.3) % Plt Count 132 L D (150-450) k/uL Immature Gran # (0.00-0.04) X 10*3/uL Lymphocytes # 0.1 L (1.0-4.8) k/uL Monocytes # (0.20-1.00) X 10*3/uL Eosinophils # (0.04-0.35) X 10*3/uL Sodium 132 L (137-145) mmol/L Chloride (98-107) mmol/L Carbon Dioxide 20 L (22-30) mmol/L Glucose 146 H (74-99) mg/dL POC Glucose (mg/dL) (70-110) mg/dL Plasma Lactic Acid Agustin 2.6 H* (0.7-2.0) mmol/L Calcium (8.4-10.2) mg/dL Total Bilirubin (0.2-1.3) mg/dL AST 342 H (14-36) U/L ALT 223 H (4-34) U/L Alkaline Phosphatase 226 H (38-126) U/L Total Protein 6.0 L (6.3-8.2) g/dL Albumin (3.5-5.0) g/dL 09/23/24 09/23/24 09/23/24 Range/Units 06:50 06:50 07:01 RBC 3.91 L (4.10-5.20) X 10*6/uL Hgb 11.0 L (12.0-15.0) g/dL Hct 33.1 L (37.2-46.3) % Plt Count 125 L (150-450) k/uL Immature Gran # 0.05 H (0.00-0.04) X 10*3/uL Lymphocytes # 0.12 L (1.0-4.8) k/uL Monocytes # 0.10 L (0.20-1.00) X 10*3/uL Eosinophils # 0 L (0.04-0.35) X 10*3/uL Sodium 131 L (137-145) mmol/L Chloride (98-107) mmol/L Carbon Dioxide 21 L (22-30) mmol/L Glucose 119 H (74-99) mg/dL POC Glucose (mg/dL) 119 H (70-110) mg/dL Plasma Lactic Acid Agustin (0.7-2.0) mmol/L Calcium 8.3 L (8.4-10.2) mg/dL Total Bilirubin 1.6 H (0.2-1.3) mg/dL AST 364 H (14-36) U/L ALT 272 H (4-34) U/L Alkaline Phosphatase 202 H (38-126) U/L Total Protein 5.5 L (6.3-8.2) g/dL Albumin 3.3 L (3.5-5.0) g/dL 09/23/24 Range/Units 14:48 RBC (4.10-5.20) X 10*6/uL Hgb (12.0-15.0) g/dL Hct (37.2-46.3) % Plt Count (150-450) k/uL Immature Gran # (0.00-0.04) X 10*3/uL Lymphocytes # (1.0-4.8) k/uL Monocytes # (0.20-1.00) X 10*3/uL Eosinophils # (0.04-0.35) X 10*3/uL Sodium 133 L (137-145) mmol/L Chloride 111 H (98-107) mmol/L Carbon Dioxide 19 L (22-30) mmol/L Glucose 134 H (74-99) mg/dL POC Glucose (mg/dL) (70-110) mg/dL Plasma Lactic Acid Agustin (0.7-2.0) mmol/L Calcium 7.7 L (8.4-10.2) mg/dL Total Bilirubin (0.2-1.3) mg/dL AST (14-36) U/L ALT (4-34) U/L Alkaline Phosphatase (38-126) U/L Total Protein (6.3-8.2) g/dL Albumin (3.5-5.0) g/dL Assessment and Plan (1) Fever Narrative/Plan: The patient had very similar, recurrent symptoms after her most recent chemotherapy. Given the similarity between this, and the previous occurrence, afebrile reaction to chemotherapy appears to be most likely. With her high fever, it is reasonable to rule out infection. Cultures were negative during her last admission, and if remain negative during this admission, then febrile reaction to chemotherapy can essentially be confirmed -The patient was advised that in this situation, if the reaction to chemotherapy is self-limiting and not life-threatening, she can potentially continue on the same regimen, with symptomatic treatment of her febrile reaction, especially if the regimen is being given with curative intent, and does not appear to be effective. The intensity of the reaction can often be reduced, once this is expected, with preemptive antipyretics for example. She was advised, of course, that this would be a decision for her primary oncologist to make. -Resuming infection workup remains negative, she can be discharged to follow-up with Dr. Veloz in outpatient Current Visit: Yes Status: Acute Priority: High Code(s): R50.9 - FEVER, UNSPECIFIED SNOMED Code(s): 814996023 (2) Liver enzyme elevation Narrative/Plan: This was noted again this admission, similar to the previous admission. Abdominal imaging has been negative. This most likely represents transaminitis due to chemotherapy. Again, if not progressive, her chemo regimen can be continued Current Visit: Yes Status: Acute Code(s): R74.8 - ABNORMAL LEVELS OF OTHER SERUM ENZYMES SNOMED Code(s): 724185370
[2024-09-23 16:26] LABS: Appearance,Urine Clear (Clear); Bilirubin,Urine Negative (Negative); Blood,Urine Negative (Negative); Color,Urine Yellow; Glucose,Urine (UA) Negative (Negative); Ketones,Urine Negative (Negative); Leukocyte Esterase,Urine Negative (Negative); Nitrite,Urine Negative (Negative); Protein,Urine Negative (Negative); Specific Gravity,Urine 1.011 (1.001-1.035); Urobilinogen,Urine <2.0 mg/dL (<2.0)
[2024-09-23] MEDS: OLANZapine 5 MG TAB PO SCH (21:04)
[2024-09-23] MEDS: ACETAMINOPHEN TAB 325 MG TAB PO PRN (21:04)
--- NOTE | 2024-09-23 22:45 | P.CONS ---
History of Present Illness - Reason for Consult Consult date: 09/23/24 Acute pyrexia on chemo Requesting physician: Antoinette Loja - Chief Complaint Fever x 1 day - History of Present Illness Patient is a 64-year-old female with a past medical history significant for hypertension reflux breast cancer for the patient is currently on chemotherapy patient recently did have a admission to the hospital and was diagnosed with diverticulitis for the patient has completed her antibiotic therapy and mention he did have soft bowel movement patient did have her chemotherapy infusion yesterday in the evening the patient has developed high- grade fever for the patient presented to the hospital patient was complaining of rigors and chills at home and fever for the patient came to the hospital patient denies having any headache or URI symptoms no chest pain no shortness with occasional cough patient denies having any nausea vomiting abdominal pain diarrhea constipation no urinary symptoms patient did have a right chest wall Mediport that was used for chemotherapy on presentation to the hospital patient did have a temperature of 102.8 degrees for night patient was not tachycardic hypotensive or hypoxic and no need for supplemental oxygen patient did have a white count of 6.4 with a left shift creatinine has been normal liver enzymes are elevated UA has been negative influenza RSV COVID testing was negative patient did have a chest x-ray no acute cardiopulmonary disease process patient has been started on Zosyn infectious disease was consulted for further management of antibiotic therapy Review of Systems Positive point and negatives has been mentioned in the HPI, complete review of systems was performed and all other systems are negative Past Medical History Past Medical History: Cancer, GERD/Reflux, Hypertension Additional Past Medical History / Comment(s): breast ca- 04/27 History of Any Multi-Drug Resistant Organisms: None Reported Past Surgical History: Section Past Anesthesia/Blood Transfusion Reactions: No Reported Reaction Past Psychological History: No Psychological Hx Reported Smoking Status: Former smoker Past Alcohol Use History: None Reported Past Drug Use History: None Reported Additional Drug Use History / Comment(s): quit smoking 2018 Medications and Allergies Home Medications Medication Instructions Recorded Confirmed Type Cetirizine HCl [Zyrtec] 10 mg PO DAILY 09/09/24 09/23/24 History Lidocaine-Prilocaine Cream [Emla 1 applic TOPICAL DAILY PRN 09/09/24 09/23/24 History Cream 2.5%/2.5%] Losartan [Cozaar] 50 mg PO DAILY 09/09/24 09/23/24 History OLANZapine [ZyPREXA] 5 mg PO DIRECTED PRN 09/09/24 09/23/24 History Ondansetron Odt [Zofran ODT] 8 mg PO Q8HR PRN 09/09/24 09/23/24 History Prochlorperazine [Compazine] 10 mg PO Q6H PRN 09/09/24 09/23/24 History dexAMETHasone [Decadron] 8 mg PO DIRECTED 09/09/24 09/23/24 History cefuroxime axetiL [Ceftin] 500 mg PO BID 10 Days #20 tab 09/14/24 09/23/24 Rx metroNIDAZOLE [Flagyl] 500 mg PO TID 10 Days #30 tab 09/14/24 09/23/24 Rx Famotidine [Pepcid] 40 mg PO HS 09/23/24 09/23/24 History Allergies Allergy/AdvReac Type Severity Reaction Status Date / Time No Known Allergies Allergy Verified 09/23/24 08:45 Physical Exam Vitals: Vital Signs Temp Pulse Pulse Resp BP BP Pulse Ox 09/23/24 07:39 99.5 F 90 16 107/58 96 09/23/24 07:37 86 20 118/68 98 09/23/24 06:06 103 F H 76 18 149/82 100 09/23/24 01:27 99.7 F H 09/23/24 00:35 88 16 128/61 96 09/22/24 21:55 100.2 F H 93 18 119/56 95 09/22/24 18:37 102.8 F H 122 H 20 139/66 97 Intake and Output 09/22/24 09/23/24 09/23/24 22:59 06:59 14:59 Other: Voiding Method Toilet Weight 69.853 kg 69.853 kg GENERAL DESCRIPTION: Elderly female lying in bed, no distress. No tachypnea or accessory muscle of respiration use. HEENT: Shows Pallor , no scleral icterus. Oral mucous membrane is dry. NECK: Trachea central, no thyromegaly. LUNGS: Unlabored breathing. Clear to auscultation anteriorly. No wheeze or cr ackle. HEART: S1, S2, regular rate and rhythm. No loud murmur ABDOMEN: Soft, no tenderness , guarding or rigidity, no organomegaly EXTREMITIES: No edema of feet. SKIN: No rash, no masses palpable. NEUROLOGICAL: The patient is awake, alert, oriented x3, mood and affect normal. Results CBC & Chem 7: 09/23/24 06:50 09/23/24 14:48 Labs: Abnormal Lab Results - Last 24 Hours (Table) 09/22/24 09/22/24 09/22/24 Range/Units 19:11 19:11 19:11 RBC (4.10-5.20) X 10*6/uL Hgb (12.0-15.0) g/dL Hct (37.2-46.3) % Plt Count 132 L D (150-450) k/uL Immature Gran # (0.00-0.04) X 10*3/uL Lymphocytes # 0.1 L (1.0-4.8) k/uL Monocytes # (0.20-1.00) X 10*3/uL Eosinophils # (0.04-0.35) X 10*3/uL Sodium 132 L (137-145) mmol/L Carbon Dioxide 20 L (22-30) mmol/L Glucose 146 H (74-99) mg/dL POC Glucose (mg/dL) (70-110) mg/dL Plasma Lactic Acid Agustin 2.6 H* (0.7-2.0) mmol/L Calcium (8.4-10.2) mg/dL Total Bilirubin (0.2-1.3) mg/dL AST 342 H (14-36) U/L ALT 223 H (4-34) U/L Alkaline Phosphatase 226 H (38-126) U/L Total Protein 6.0 L (6.3-8.2) g/dL Albumin (3.5-5.0) g/dL 09/23/24 09/23/24 09/23/24 Range/Units 06:50 06:50 07:01 RBC 3.91 L (4.10-5.20) X 10*6/uL Hgb 11.0 L (12.0-15.0) g/dL Hct 33.1 L (37.2-46.3) % Plt Count 125 L (150-450) k/uL Immature Gran # 0.05 H (0.00-0.04) X 10*3/uL Lymphocytes # 0.12 L (1.0-4.8) k/uL Monocytes # 0.10 L (0.20-1.00) X 10*3/uL Eosinophils # 0 L (0.04-0.35) X 10*3/uL Sodium 131 L (137-145) mmol/L Carbon Dioxide 21 L (22-30) mmol/L Glucose 119 H (74-99) mg/dL POC Glucose (mg/dL) 119 H (70-110) mg/dL Plasma Lactic Acid Agustin (0.7-2.0) mmol/L Calcium 8.3 L (8.4-10.2) mg/dL Total Bilirubin 1.6 H (0.2-1.3) mg/dL AST 364 H (14-36) U/L ALT 272 H (4-34) U/L Alkaline Phosphatase 202 H (38-126) U/L Total Protein 5.5 L (6.3-8.2) g/dL Albumin 3.3 L (3.5-5.0) g/dL Assessment and Plan (1) Fever Current Visit: Yes Status: Acute Priority: High Code(s): R50.9 - FEVER, UNSPECIFIED SNOMED Code(s): 872363468 Plan: 1patient presented to hospital with fever and this patient symptoms started the day of receiving her chemotherapy patient did have elevated liver enzyme but no significant abdominal tenderness UA has been negative chest x-ray was reported negative normal white count questionable infectious versus noninfectious etiology. 2await the ultrasound of the abdomen to be completed and we will wait for the blood culture to finalize. 3for now continue with empiric Zosyn while waiting for the workup to be complet ed question concern answered We will follow on clinical condition and cultures to further adjust medication if needed Thank you for this consultation we will follow the patient along with you Dictation was produced using [employer] dictation software. please excuse any grammatical, word or spelling errors. Time with Patient: Greater than 30
[2024-09-24 08:18] VITALS: RESP 16
[2024-09-24 10:57] LABS: BUN/Creat Ratio 16.29 Ratio (12.00-20.00); Blood Urea Nitrogen 11.4 mg/dL (9.0-27.0); Calcium 7.8 mg/dL (8.7-10.3); Carbon Dioxide 22.8 mmol/L (21.6-31.8); Chloride 110 mmol/L (96-109); Glucose 76 mg/dL (70-110); Potassium 4.4 mmol/L (3.5-5.5); Sodium 141 mmol/L (135-145)
[2024-09-24] MEDS: dexAMETHasone 4 MG TAB PO SCH (11:23)
[2024-09-24 11:26] LABS: Basophils # (A) 0.05 X 10*3/uL (0.00-0.10); Eosinophils # (A) 0.02 X 10*3/uL (0.04-0.35); Eosinophils % (A) 0.4 %; HCT 32.9 % (37.2-46.3); HGB 10.6 g/dL (12.0-15.0); Lymphocytes # (A) 1.24 X 10*3/uL (0.90-5.00); Lymphocytes % (A) 24.7 %; MCH 28.5 pg (27.0-32.0); MCHC 32.2 g/dL (32.0-37.0); MCV 88.4 FL (80.0-97.0); Monocytes # (A) 0.21 X 10*3/uL (0.20-1.00); Monocytes % (A) 4.2 %; NRBC Per 100 WBC 0 X 10*3/uL (0.00-0.01); Neutrophils # (A) 3.49 X 10*3/uL (1.80-7.70); Neutrophils % (A) 69.3 %; Platelet Count 105 X 10*3/uL (140-440); RBC 3.72 X 10*6/uL (4.10-5.20); RDW 14.6 % (11.5-14.5); WBC 5.03 X 10*3/uL (4.50-10.00)
--- NOTE | 2024-09-24 13:29 | P.PN ---
Subjective Progress Note Date: 09/24/24 Patient is a 64-year-old female with past medical history of breast cancer currently undergoing chemotherapy, GERD, hypertension presented to the emergency department with a fever. Patient currently has triple negative breast cancer and is getting treatment at [facility]. Patient does follow an oncologist out of [facility]. Patient received her chemotherapy infusion yesterday morning. A few hours after receiving the treatment, patient developed a high fever along with body chills. Patient was recently diagnosed with triple negative breast cancer in April and has been getting chemotherapy since July. This is the third time since she started the chemo where she had to come to the hospital with fever and chills shortly after receiving the chemo. Of note, patient was just here about a week ago with similar complaints and was found to have a diverticulitis and was discharged with cefuroxime and Flagyl to go home with. Patient currently endorses fever, chills, nausea, tingling sensation in her fingertips. Denies vomiting, chest pain, shortness of breath, diarrhea, constipation, belly pain, dysuria, upper or lower extremity weakness. In the ED patient was treated with acetaminophen 1000 mg PO x 1, a bolus of normal saline, lidocaine cream topical x 1, Zofran 4 mg IV x 1, famotidine 40 mg PO x 1, olanzapine 5 mg PO x 1, and zosyn IV. Vitals on admission temperature of 99.7, pulse rate 88, respiratory rate 16, blood pressure 128/61, O2 sat of 96% on room air. CXR shows no acute cardiopulmonary disease/process. Labs on admission show white blood count of 6.4, hemoglobin 11.5, hematocrit 34.4, platelets 132, sodium 132, potassium 3.8, chloride 103, carbon dioxide 20, BUN 13, creatinine 0.63, glucose 146, lactic acid 2.6, AST 342, ALT 223, alkaline phosphatase 226. 09/24. Patient seen sitting up in bed. No acute events overnight. No significant complaints today. Denies fever, chills, chest pain, abdominal pain, dyspnea, vomiting. Labs today: WBC 5.03, hemoglobin 10.6, platelets 105, sodium 141, potassium 4.4, chloride 110, BUN 11.4, creatinine 0.7. Pertinent positives and negatives discussed above, a complete review of systems was performed and all the other systems were negative. Physical examination: Vital signs reviewed. Afebrile, normotensive, saturating 98% on room air. General: Nontoxic, no distress, appears stated age, well-appearing Derm: Warm, dry, intact Head: Atraumatic, normocephalic, symmetric Eyes: EOMI, anicteric sclera Mouth: No lip lesion, mucus membranes moist Cardiovascular: S1-S2 regular, no murmur Lungs: CTA bilateral, no rhonchi, no rales, no accessory muscle use Abdominal: Soft, non-tender to palpation Extremities: No cyanosis, clubbing, or pedal edema Neuro: Alert, oriented x 3, gross neurological examination did not reveal any focal deficits. Cranial nerves II to XII grossly intact. Psych: Appropriate affect and mood Assessment and Plan: Patient is a 64-year-old female with past medical history of breast cancer currently undergoing chemotherapy, hypertension, and GERD admitted for pyrexia and sepsis on arrival. Active #. Pyrexia shortly after undergoing chemotherapy, likely reaction to chem otherapy, resolved #. Sepsis on arrival, resolved Pending blood culturescontinue empiric Zosyn 3.375 g every 8 hours Infectious disease following, recommending further observation and wait till cultures are negative Discussed management with oncology, okay for discharge #. Transaminitis Right upper quadrant ultrasound: No stones or wall thickening of the gallbladder, liver within normal limits. Monitor CMP #. Thrombocytopenia, likely due to chemotherapy Monitor CBC Resolved #. Hyponatremia #. Lactic acidosis #. Hyperglycemia Chronic #. Hypertension Losartan 50 mg PO daily F: None E: Replete if required N: Regular diet A: Ambulatory DVT prophylaxis: Lovenox 40 mg subcutaneous daily Code status: Full code Anticipated discharge place: Home I have seen and evaluated the patient today. Discussed with the resident and agree with the residents finding and plan as documented in the resident's note. Changes highlighted in blue font. Objective - Vital Signs Vital signs: Vital Signs Temp 98.5 F 09/24/24 01:12 Pulse 68 09/24/24 01:12 Resp 17 09/24/24 01:12 BP 119/65 09/24/24 01:12 Pulse Ox 98 09/24/24 01:12 FiO2 Intake & Output 09/23/24 09/24/24 09/24/24 18:59 06:59 18:59 Weight 69.853 kg Other: Voiding Method Toilet Toilet # Voids 3 1 # Bowel Movements 1 - Labs CBC & Chem 7: 09/24/24 04:31 09/24/24 04:31 Labs: Abnormal Lab Results - Last 24 Hours (Table) 09/23/24 09/23/24 09/23/24 Range/Units 06:50 06:50 07:01 RBC 3.91 L (4.10-5.20) X 10*6/uL Hgb 11.0 L (12.0-15.0) g/dL Hct 33.1 L (37.2-46.3) % Plt Count 125 L (140-440) X 10*3/uL Immature Gran # 0.05 H (0.00-0.04) X 10*3/uL Lymphocytes # 0.12 L (0.90-5.00) X 10*3/uL Monocytes # 0.10 L (0.20-1.00) X 10*3/uL Eosinophils # 0 L (0.04-0.35) X 10*3/uL Sodium 131 L (137-145) mmol/L Chloride (98-107) mmol/L Carbon Dioxide 21 L (22-30) mmol/L Glucose 119 H (74-99) mg/dL POC Glucose (mg/dL) 119 H (70-110) mg/dL Calcium 8.3 L (8.4-10.2) mg/dL Total Bilirubin 1.6 H (0.2-1.3) mg/dL AST 364 H (14-36) U/L ALT 272 H (4-34) U/L Alkaline Phosphatase 202 H (38-126) U/L Total Protein 5.5 L (6.3-8.2) g/dL Albumin 3.3 L (3.5-5.0) g/dL 09/23/24 Range/Units 14:48 RBC (4.10-5.20) X 10*6/uL Hgb (12.0-15.0) g/dL Hct (37.2-46.3) % Plt Count (140-440) X 10*3/uL Immature Gran # (0.00-0.04) X 10*3/uL Lymphocytes # (0.90-5.00) X 10*3/uL Monocytes # (0.20-1.00) X 10*3/uL Eosinophils # (0.04-0.35) X 10*3/uL Sodium 133 L (137-145) mmol/L Chloride 111 H (98-107) mmol/L Carbon Dioxide 19 L (22-30) mmol/L Glucose 134 H (74-99) mg/dL POC Glucose (mg/dL) (70-110) mg/dL Calcium 7.7 L (8.4-10.2) mg/dL Total Bilirubin (0.2-1.3) mg/dL AST (14-36) U/L ALT (4-34) U/L Alkaline Phosphatase (38-126) U/L Total Protein (6.3-8.2) g/dL Albumin (3.5-5.0) g/dL Microbiology - Last 24 Hours (Table) 09/22/24 19:27 Blood Culture - Preliminary Blood
--- NOTE | 2024-09-24 13:47 | P.PN ---
Subjective Progress Note Date: 09/24/24 Principal diagnosis: Reason for follow-up is fever Patient is a 64-year-old female with a past medical history significant for hypertension reflux breast cancer for the patient is currently on chemotherapy patient recently did have a admission to the hospital and was d iagnosed with diverticulitis for the patient has completed her antibiotic therapy currently admitted to hospital for fever started the evening of getting her chemotherapy. On today's evaluation that is 09/24/2024, patient did have resolution of her fever and denies any chills, patient is breathing comfortably on room air, patient with no chest pain or cough patient did not have any abdominal pain nausea vomiting or any loose stools, mention feeling better. Patient white count is 5.03 creatinine 0.7 ultrasound abdomen did not show any evidence of cholestasis blood culture has been pending Objective - Vital Signs Vital signs: Vital Signs Temp 98.6 F 09/24/24 12:29 Pulse 71 09/24/24 12:29 Resp 16 09/24/24 12:29 BP 122/71 09/24/24 12:29 Pulse Ox 96 09/24/24 12:29 FiO2 Intake & Output 09/23/24 09/24/24 09/24/24 18:59 06:59 18:59 Intake Total 240 Balance 240 Weight 69.853 kg Intake: Oral 240 Other: Voiding Method Toilet Toilet Toilet # Voids 3 1 # Bowel Movements 1 - Exam GENERAL DESCRIPTION: An elderly female lying in bed in no distress RESPIRATORY SYSTEM: Unlabored breathing , decreased breath sounds at bases HEART: S1 S2 regular rate and rhythm , ABDOMEN: Soft , no tenderness EXTREMITIES: No edema feet - Labs CBC & Chem 7: 09/24/24 04:31 09/24/24 04:31 Labs: Abnormal Lab Results - Last 24 Hours (Table) 09/23/24 09/24/24 09/24/24 Range/Units 14:48 04:31 04:31 RBC 3.72 L (4.10-5.20) X 10*6/uL Hgb 10.6 L (12.0-15.0) g/dL Hct 32.9 L (37.2-46.3) % RDW 14.6 H (11.5-14.5) % Plt Count 105 L (140-440) X 10*3/uL Eosinophils # 0.02 L (0.04-0.35) X 10*3/uL Sodium 133 L (137-145) mmol/L Chloride 111 H 110 H (98-107) mmol/L Carbon Dioxide 19 L (22-30) mmol/L Glucose 134 H (74-99) mg/dL Calcium 7.7 L 7.8 L (8.4-10.2) mg/dL Microbiology - Last 24 Hours (Table) 09/22/24 19:27 Blood Culture - Preliminary Blood Assessment and Plan (1) Fever Current Visit: Yes Status: Acute Priority: High Code(s): R50.9 - FEVER, UNSPECIFIED SNOMED Code(s): 506109648 Plan: 1patient presented to hospital with fever and this patient symptoms started the day of receiving her chemotherapy patient did have elevated liver enzyme but no significant abdominal tenderness UA has been negative chest x-ray was reported negative normal white count questionable infectious versus noninfectious etiology. 2 ultrasound of the abdomen did not show any features suggestive of cholecystitis blood culture have been pending so far with a question of fever possible related to her chemotherapy 3for now continue with empiric Zosyn however if the cultures are negative and considering the fever to be related to chemo in that case antibiotic can be safely discontinued Dictation was produced using [employer] dictation software. please excuse any gr ammatical, word or spelling errors. Time with Patient: Less than 30
[2024-09-24] MEDS: FAMOTIDINE 20 MG TAB PO SCH (21:04)
[2024-09-25 08:41] VITALS: BP 144/76; PULSE 69; TEMP 97.8
--- NOTE | 2024-09-25 12:15 | P.DS ---
Providers Date of admission: 09/23/24 00:19 Expected date of discharge: 09/25/24 Attending physician: Maddie Leone MD Consults: 09/23/24 00:15 Consult Physician Urgent Consulting Provider: Duran Liao Consult Reason/Comments: acute fever, possible chemo reaction Do you want consulting provider notified?: Yes Consult Physician Urgent Consulting Provider: Brandon Tan Consult Reason/Comments: acute pyrexia, on chemo Do you want consulting provider notified?: Yes Primary care physician: [facility] Course: Discharge Diagnosis: Pyrexia secondary to drug reaction Breast cancer on chemotherapy Transaminitis Thrombocytopenia Hyponatremia Lactic acidosis Hyperglycemia Hypertension Hospital Course: 64-year-old female with past medical history of breast cancer currently undergoing chemotherapy, GERD, hypertension presented to the emergency department with a fever. In the ED patient was treated with acetaminophen 1000 mg PO x 1, a bolus of normal saline, lidocaine cream topical x 1, Zofran 4 mg IV x 1, famotidine 40 mg PO x 1, olanzapine 5 mg PO x 1, and zosyn IV. Vitals on admission temperature of 99.7, pulse rate 88, respiratory rate 16, blood pressure 128/61, O2 sat of 96% on room air. CXR shows no acute cardiopulmonary disease/process. Labs on admission show white blood count of 6.4, hemoglobin 11.5, hematocrit 34.4, platelets 132, sodium 132, potassium 3.8, chloride 103, carbon dioxide 20, BUN 13, creatinine 0.63, glucose 146, lactic acid 2.6, AST 342, ALT 223, alkaline phosphatase 226. Patient was empirically started on IV Zosyn. ID consulted, oncology consulted. Blood cultures remain negative, likely reaction to chemotherapy. Right upper quadrant ultrasound did not show any acute pathology. Patient being discharged home. Patient seen and examined at bedside. Vital signs reviewed and stable. General: Nontoxic, no distress, appears at stated age Derm: Warm, dry Head: Atraumatic, normocephalic, symmetric Eyes: EOMI, no lid lag, anicteric sclera Mouth: No lip lesion, mucus membranes moist Cardiovascular: S1S2 reg, no murmur Lungs: CTA bilateral, no rhonchi, no rales, no accessory muscle use Abdominal: Soft, nontender to palpation, no guarding, no appreciable organomegaly Ext: No gross muscle atrophy, no edema, no contractures Neuro: CN II-XI grossly intact, no focal neuro deficits Psych: Alert, oriented, appropriate affect A total of 33 minutes of time were spent preparing this complex discharge summary. Patient was discharged on 09/25/2024 at 1135. Patient Condition at Discharge: Stable Plan - Discharge Summary Discharge Rx Participant: No New Discharge Prescriptions: Continue Cetirizine HCl [Zyrtec] 10 mg PO DAILY Prochlorperazine [Compazine] 10 mg PO Q6H PRN PRN Reason: breakthrough nausea/vomiting Ondansetron Odt [Zofran ODT] 8 mg PO Q8HR PRN PRN Reason: breakthrough nausea/vomiting OLANZapine [ZyPREXA] 5 mg PO DIRECTED PRN PRN Reason: Nausea dexAMETHasone [Decadron] 8 mg PO DIRECTED Losartan [Cozaar] 50 mg PO DAILY Lidocaine-Prilocaine Cream [Emla Cream 2.5%/2.5%] 1 applic TOPICAL DAILY PRN PRN Reason: mediport access Famotidine [Pepcid] 40 mg PO HS Discontinued cefuroxime axetiL [Ceftin] 500 mg PO BID 10 Days #20 tab metroNIDAZOLE [Flagyl] 500 mg PO TID 10 Days #30 tab Discharge Medication List Cetirizine HCl [Zyrtec] 10 mg PO DAILY 09/09/24 [History] Lidocaine-Prilocaine Cream [Emla Cream 2.5%/2.5%] 1 applic TOPICAL DAILY PRN 09/09/24 [History] Losartan [Cozaar] 50 mg PO DAILY 09/09/24 [History] OLANZapine [ZyPREXA] 5 mg PO DIRECTED PRN 09/09/24 [History] Ondansetron Odt [Zofran ODT] 8 mg PO Q8HR PRN 09/09/24 [History] Prochlorperazine [Compazine] 10 mg PO Q6H PRN 09/09/24 [History] dexAMETHasone [Decadron] 8 mg PO DIRECTED 09/09/24 [History] Famotidine [Pepcid] 40 mg PO HS 09/23/24 [History] Follow up Appointment(s)/Referral(s): Duran Liao [STAFF PHYSICIAN] - 1 Week (Please call and schedule follow-up appointment) Carlyle Cao DO [Primary Care Provider] - 1-2 days (Please call and schedule follow-up appointment) Patient Instructions/Handouts: Fever in Adults (ED) Activity/Diet/Wound Care/Special Instructions: Please follow up with primary care and oncology physicians. Call on Thursday to schedule appointments DIET TOLERATED activity Limited until seen by DR. Lewis Disposition: HOME SELF-CARE
--- NOTE | 2024-09-26 15:44 | P.PN ---
Subjective Progress Note Date: 09/25/24 Principal diagnosis: Reason for follow-up is fever Patient is a 64-year-old female with a past medical history significant for hypertension reflux breast cancer for the patient is currently on chemotherapy patient recently did have a admission to the hospital and was d iagnosed with diverticulitis for the patient has completed her antibiotic therapy currently admitted to hospital for fever started the evening of getting her chemotherapy. On today's evaluation that is 09/25/2024, Patient is afebrile patient is currently on room air and denies having any shortness of breath, the patient denies any chest pain or cough, the patient denies any nausea vomiting did not have any abdominal pain and no diarrhea, feeling better wants to go home. Patient did not have a lab draw today culture have been negative so far Objective - Vital Signs Vital signs: Vital Signs Temp 97.8 F 09/25/24 07:27 Pulse 69 09/25/24 07:27 Resp 16 09/25/24 07:27 BP 144/76 09/25/24 07:27 Pulse Ox 98 09/25/24 07:27 FiO2 Intake & Output 09/24/24 09/25/24 09/25/24 18:59 06:59 18:59 Intake Total 1800 100 480 Balance 1800 100 480 Intake: Intake, IV Titration 100 Amount Piperacillin-Tazobactam 3 100 .375 gm In Sodium Chloride 0.9% 100 ml @ 25 mls/hr IVPB Q8HR [facility] Rx# :[id number] Oral 1800 480 Other: Voiding Method Toilet Toilet # Voids 5 1 # Bowel Movements 1 - Exam GENERAL DESCRIPTION: An elderly female lying in bed in no distress RESPIRATORY SYSTEM: Unlabored breathing , decreased breath sounds at bases HEART: S1 S2 regular rate and rhythm , ABDOMEN: Soft , no tenderness EXTREMITIES: No edema feet - Labs CBC & Chem 7: 09/24/24 04:31 09/24/24 04:31 Labs: Abnormal Lab Results - Last 24 Hours (Table) 09/24/24 09/24/24 Range/Units 04:31 04:31 RBC 3.72 L (4.10-5.20) X 10*6/uL Hgb 10.6 L (12.0-15.0) g/dL Hct 32.9 L (37.2-46.3) % RDW 14.6 H (11.5-14.5) % Plt Count 105 L (140-440) X 10*3/uL Eosinophils # 0.02 L (0.04-0.35) X 10*3/uL Chloride 110 H (96-109) mmol/L Calcium 7.8 L (8.7-10.3) mg/dL Microbiology - Last 24 Hours (Table) 09/22/24 19:27 Blood Culture - Preliminary Blood Assessment and Plan (1) Fever Status: Acute Priority: High Code(s): R50.9 - FEVER, UNSPECIFIED SNOMED Code(s): 662526516 Plan: 1patient presented to hospital with fever and this patient symptoms started the day of receiving her chemotherapy patient did have elevated liver enzyme but no significant abdominal tenderness UA has been negative chest x-ray was reported negative normal white count questionable infectious versus noninfectious etio logy. 2 ultrasound of the abdomen did not show any features suggestive of cholecystitis blood culture have been pending so far with a question of fever possible related to her chemotherapy 3with cultures negative so far and no clear focus of infectious etiology recommend to discontinue Zosyn and antibiotic for discharge discussed with the medical team patient question concern answered Dictation was produced using [employer] dictation software. please excuse any grammatical, word or spelling errors. Time with Patient: Less than 30
--- NOTE | 2024-09-27 10:00 | CDI ---
Documentation Clarification Form Date: 09/27/2024 09:56:32 AM From: Cecelia Hall Phone: Admit Date: 09/23/2024 12:19:00 AM Patient Name: Shell Ruiz Visit Number: [id number] Discharge Date: 09/25/2024 12:37:00 PM ATTENTION: The Clinical Documentation Specialists (CDI) and [facility] Coding Staff appreciate your assistance in clarifying documentation. Please respond to the clarification below the line at the bottom and electronically sign. The CDI & [facility] Coding staff will review the response and follow-up if needed. Please note: Queries are made part of the Legal Health Record. If you have any questions, please contact the author of this message via ITS. Doctor/Provider: Pedro Lily Monge Sepsis is documented on 09/23 H&P which may lack sufficient clinical evidence/support in the medical record. Additional clarification is requested. History/Risk Factors: Breast cancer currently on chemotherapy, HTN Clinical Indicators: Patient presented to the emergency department with a fever. Discharge summary states Pyrexia secondary to drug reaction, likely reaction to chemotherapy. 09/22 Vitals: Temp 99.7, DE 88, RR 16, BP 128/61, O2 sat 96% on room air 09/22 CXR: no acute cardiopulmonary disease/process. 09/22 Labs: WBC 6.4, hemoglobin 11.5, hematocrit 34.4, platelets 132, sodium 132, potassium 3.8, chloride 103, carbon dioxide 20, BUN 13, creatinine 0.63, glucose 146, lactic acid 2.6, AST 342, ALT 223, alkaline phosphatase 226 Consults: ID, Oncology Treatment: In the ED treated with zosyn IV which was continued as Zosyn 3.375 g every 8 hours until 09/25 when cultures returned negative After work up and study, please clarify which diagnosis is most appropriate? [ ] Sepsis ruled out [ ] Sepsis treated prophylactically [ ] Sepsis is a valid diagnosis as evidence by the following: (Please add rationale): [x ] Non-Infectious SIRS due to (please specify) [ ] Other, please specify [ ] Unable to determine MTDD
== END 2024-09-25 12:37 | disposition home or self-care (01) | DRG 864 ==
LOC: EC 18:35 → 5NMEDONC 09-23 00:19
PROVIDERS: ADMIT Internal Medicine; ATTEND Internal Medicine
DX: R50.2 Drug induced fever (principal); E87.1 Hypo-osmolality and hyponatremia; E87.20 Acidosis, unspecified; R65.10 Systemic inflammatory response syndrome (SIRS) of non-infectious origin without acute organ dysfunction; D69.59 Other secondary thrombocytopenia; C50.912 Malignant neoplasm of unspecified site of left female breast; I10 Essential (primary) hypertension; R74.01 Elevation of levels of liver transaminase levels; R73.9 Hyperglycemia, unspecified; K21.9 Gastro-esophageal reflux disease without esophagitis; T45.1X5A Adverse effect of antineoplastic and immunosuppressive drugs, initial encounter; Z17.421 Hormone receptor negative with human epidermal growth factor receptor 2 negative status; Z79.899 Other long term (current) drug therapy; Z87.891 Personal history of nicotine dependence
CPT/HCPCS: 36415; 71046; 76705; 80048; 80053; 81003; 83036; 83605; 85025; 87040; 87636; 96365; 96366; 96375; 99285